=== PATIENT | male | born 1935 | race Caucasian/White ===

== ENCOUNTER 2019-10-09 09:23 | Observation (INO) ==
[2019-10-09 10:07] LABS: Hematocrit 37.8 % (42.0-52.0); Mean Cell Volume 93.8 fl (78-100); Mean Corpuscular Hemoglobin 32.3 pg (27-31); Mean Corpuscular Hgb Conc 34.4 g/dl (32-36); Mean Platelet Volume 10.6 fl (8-11.3); Neutrophil # 10.1 K/mm3 (1.3-6.0); Neutrophil % 82.5 % (42-75.0); Platelet Count 229 K/mm3 (150-450); Red Blood Count 4.03 M/mm3 (4.7-6.0); Red Cell Distribution Width 13.9 % (11.5-14.0); White Blood Count 12.2 K/mm3 (4.0-10.5)
[2019-10-09 10:18] LABS: Urine Bilirubin Negative (NEGATIVE); Urine Blood Negative /ul (NEGATIVE); Urine Ketone Negative (NEGATIVE); Urine Nitrite Negative (NEGATIVE); Urine Protein 15 mg/dL (NEGATIVE); Urine Urobilinogen Normal (NORMAL)
[2019-10-09 10:25] LABS: Urine Appearance Clear (CLEAR); Urine Color Dark Yellow
[2019-10-09 10:26] LABS: Urine Amorphous Sediment Few - 1+ (NONE-FEW); Urine Bacteria None Seen; Urine RBC None Seen /hpf (0-5); Urine WBC None Seen /hpf (0-5)
[2019-10-09 10:33] LABS: Albumin * 3.3 gm/dl (3.4-5.0); Anion Gap 13.3 mmol/L (6.8-13.8); BUN/Creatinine Ratio 18.8 (9.0-21.6); Bilirubin, Total 1.1 mg/dL (0.0-1.1); Ca. Corrected For Albumin 9.1 mg/dL (8.4-10.2); Calcium * 8.9 mg/dL (7.9-10.9); Carbon Dioxide 26.1 mmol/L (24-32.6); Potassium 3.4 mmol/L (3.4-4.6)
[2019-10-09 10:40] LABS: Troponin I 0.032 ng/mL (0.00-0.10)
--- NOTE | 2019-10-09 11:29 | ERNOTE ---
Trauma/Assault HPI - Narrative Date of Service: 10/09/19 - General Stated Complaint: fall Time Seen by Provider: 10/09/19 09:44 Source: patient Exam Limitations: no limitations - Immun/Allergies/Home Medications Immunizations: IMMUNIZATION HX Immunizations Up to Date Yes History of Influenza Vaccine No Hx Pneumococcal Vaccination No Allergies/Adverse Reactions: Allergies codeine Allergy (Unknown, Verified 06/10/19 17:26) Unknown Home Medications: HOME MEDICATIONS levothyroxine 150 mcg tablet See Rx Instructions .ROUTE .COMPLEX #90 tablet 04/03/19 [Last Taken Unknown] Bacillus coagulans 10 billion cell capsule,delayed release 10,000,000 cell PO DAILY cap 06/04/19 [Last Taken 06/08/19] Pancreat-Bet XRh-yjs-ftgt-pap 250 mg-162 mg-65 mg-125 mg capsule 1 cap PO BID cap 06/04/19 [Last Taken Unknown] aspirin 81 mg tablet,delayed release 81 mg PO DAILY 06/04/19 [Last Taken Unknown] bee pollen 550 mg capsule 1,100 mg PO DAILY cap 06/04/19 [Last Taken Unknown] bone meal-vitamin D2 1 tab PO DAILY tab 06/04/19 [Last Taken Unknown] bromelains (bulk) 1 ea MISCELLANEOUS DAILY 06/04/19 [Last Taken 06/08/19] citrulline 600 mg capsule 1.8 g PO TID 06/04/19 [Last Taken Unknown] coenzyme Q10 100 mg capsule 200 mg PO DAILY cap 06/04/19 [Last Taken Unknown] iodine 150 mcg tablet 600 mcg PO DAILY tab 06/04/19 [Last Taken Unknown] propylene glycol 0.6 % eye drops 1 drp OP DAILY PRN 06/04/19 [Last Taken Unknown] turmeric (bulk) 95 % powder 95 % MISCELLANEOUS DAILY g 06/04/19 [Last Taken 06/08/19] alprazolam 0.25 mg tablet 0.25 mg PO BID PRN #14 tab 06/12/19 [Last Taken Unkn own] - History of Present Illness Narrative: Patient presents to the ED via EMS> He has been having recurrent falls. Had a fall a week ago where he hurt his back and leg (right). Right leg pain and swelling since then and low back pain since then. Seems worse overall to the point that he cannot get around due to pain. No acute focal weakness. No head injury. Generalized weakness and gait instability. No acute abdominal pain. No CP, rare cough. EMS gave the patient Toradol en route. Location Occurred: Reports: home Pain Location: Reports: other - see narrative Method of Injury: Reports: fall Severity: severe Modifying Factors - (Improves): Reports: rest Modifying Factors - (Worsens): Reports: movement Loss of Consciousness: Reports: no loss of consciousness Associated Symptoms - Trauma: Reports: trouble walking. Denies: chest pain, shortness of breath, abdominal pain, vomiting Review of Systems - Review of Systems Constitutional: Absent: fever Respiratory: Absent: shortness of breath Cardiology: Absent: chest pain Gastrointestinal/Abdominal: Absent: abdominal pain Neurological: Present: See HPI All Other Systems: All systems neg except as marked Medical History (Last Reviewed 10/09/19 @ 12:59 by Baudilio Wolff MD) Osteoarthritis (Chronic) Onset Date: Unknown Hypothyroidism (Chronic) Onset Date: Unknown Hyperlipidemia (Chronic) Onset Date: Unknown GERD (gastroesophageal reflux disease) (Chronic) Onset Date: Unknown Hypertension (Chronic) Onset Date: ~03/11/16 Depression (Chronic) Onset Date: Unknown Arthritis (Chronic) Onset Date: ~03/11/16 Anxiety disorder (Chronic) Onset Date: Unknown Acid reflux disease (Chronic) Onset Date: ~11/07/15 Calculus of kidney Onset Date: Unknown Colonoscopy refused Onset Date: ~12/11/16 Fracture Onset Date: Unknown Knee pain, left Onset Date: ~03/11/16 Knee pain, right Onset Date: ~03/11/16 Surgical History: Surgical History (Last Reviewed 10/09/19 @ 12:59 by Baudilio Wolff MD) S/P ORIF (open reduction internal fixation) fracture Onset Date: ~08/24/08 right patella Family History: Family History (Last Reviewed 10/09/19 @ 12:59 by Baudilio Wolff MD) Sister Diabetes Heart disease Father TIA (transient ischemic attack) Heart disease Aunt Cancer Uncle Cancer Social History: (Last Reviewed 10/09/19 @ 12:59 by Baudilio Wolff MD) Social History: Marital status: Single current occupational status: retired Service: No Tobacco: Smoking Status: Never smoker Alcohol: alcohol intake: never Substance Use: substance use type: does not use Dietary Habits: caffeine: Yes Physical Exam - Physical Exam General Appearance: Present: alert, no apparent distress Head Exam: Present: normal inspection, no evidence of injury Eye Exam: Normal inspection: bilateral, PERRL: bilateral Ears, Nose, Throat: Present: normal ENT inspection Neck: Present: normal inspection. Absent: tender posterior midline Respiratory: Present: no respiratory distress, normal breath sounds, no accessory muscle use, lungs clear Cardiovascular/Chest: Present: regular rate, rhythm Gastrointestinal/Abdominal: Present: normal bowel sounds, nontender, nondist ended, soft Back Exam: Present: other - diffuse low back tenderness, does not localize specifically to one level, no localizing point vertebral tenderness. Extremity Exam: Present: other - Tenderness right knee, Swelling right leg c/w left. No compartment syndrome noted. Strong pulses. No other point extremity tenderness. Neurological Exam: Present: alert, no motor/sensory deficits, other - pain limits exam but no clear acute unilateral focal motor or sensory deficits Skin Exam: Present: normal color, warm/dry, other - no cellulitis noted Progress - Results and Orders Patient's Lab Results:: I have reviewed the patient's lab results. - Vital Signs Patient's Vital Signs:: I have reviewed the patient's vital signs. Vital Signs: Vital Signs 10/09/19 09:29 10/09/19 09:35 10/09/19 10:35 Temperature 36.0 C Pulse Rate 84 86 104 H Respiratory Rate 14 16 Blood Pressure 199/91 H 180/90 H O2 Sat by Pulse Oximetry 99 95 - EKG EKG #1 EKG: NSR EKG read: Interp. by me EKG Comments: NSR rate 78. Ventricular premature complexes. Non-specific ST/T wave changes, no STEMI - X-Ray X-Ray #1 X-Ray: chest Interpretation: Interp. by me X-ray Comments: I reviewed official radiology report X-Ray #2 X-Ray: lumbosacral Interpretation: Interp. by me X-ray Comments: I reviewed official radiology report X-Ray #3 X-Ray: tibula/fibula Interpretation: Interp. by me X-ray Comments: I reviewed official radiology report X-Ray #4 X-Ray: femur Interpretation: Interp. by me X-ray Comments: I reviewed official radiology report - Progress/Reassessment Chief Complaint: Fall Progress Note-Subjective: 10/09/19 13:[address] Dickson. He will see in the office. Patient has too much pain and can not safely ambulate with age/pain. Severe fall risk and no home services. D/W case management. D/W Dr Rosa will admit obs. Patient agreeable. Departure Clinical Impression: Recurrent falls, Gait instability, Back pain, Leg pain - Departure Disposition: Still a patient Condition: Fair Critical Care Time - Critical Care Critical Time Spent:: No
[2019-10-09] MEDS ORDERED: fentaNYL CITRATE/PF 50 MCG/ML AMPUL IV ONE (11:53)
--- NOTE | 2019-10-09 14:07 | HP ---
Chief Complaint - Chief Complaint Date of Service: 10/09/19 Time of Service: 13:44 Chief Complaint: Right leg swelling, unable to walk History of Present Illness: Patient presented to the ER after being unable to walk. He fell about a week ago by rolling out of bed, and declined hospitalization by EMS. Since then, he has lost the ability to walk. He's been immobile for a few days. He has some pain in his left leg, but his right leg is very swollen and is significantly painful from the knee to the calf. Most of the pain is in his calf. He had a lactate of 2.6, resolved to 1.1 while in the ED. Imaging suggested a possible hairline fracture of the tibia, but he is not significantly painful in this region. Labs show he has a very slight elevation in white blood cell count of 12.2, slight anemia at 13.0. Denies other concerns. Medical History (Last Reviewed 10/09/19 @ 12:59 by Baudilio Wolff MD) Osteoarthritis (Chronic) Onset Date: Unknown Hypothyroidism (Chronic) Onset Date: Unknown Hyperlipidemia (Chronic) Onset Date: Unknown GERD (gastroesophageal reflux disease) (Chronic) Onset Date: Unknown Hypertension (Chronic) Onset Date: ~03/11/16 Depression (Chronic) Onset Date: Unknown Arthritis (Chronic) Onset Date: ~03/11/16 Anxiety disorder (Chronic) Onset Date: Unknown Acid reflux disease (Chronic) Onset Date: ~11/07/15 Calculus of kidney Onset Date: Unknown Colonoscopy refused Onset Date: ~12/11/16 Fracture Onset Date: Unknown Knee pain, left Onset Date: ~03/11/16 Knee pain, right Onset Date: ~03/11/16 Surgical History: Surgical History (Last Reviewed 10/09/19 @ 12:59 by Baudilio Wolff MD) S/P ORIF (open reduction internal fixation) fracture Onset Date: ~08/24/08 right patella Family History: Family History (Last Reviewed 10/09/19 @ 12:59 by Baudilio Wolff MD) Sister Diabetes Heart disease Father TIA (transient ischemic attack) Heart disease Aunt Cancer Uncle Cancer Social History: (Last Reviewed 10/09/19 @ 12:59 by Baudilio Wolff MD) Social History: Marital status: Single current occupational status: retired Service: No Tobacco: Smoking Status: Never smoker Alcohol: alcohol intake: never Substance Use: substance use type: does not use Dietary Habits: caffeine: Yes Review Of Systems (GEN) - Review of Systems Generalized/Overall Review: Absent: Fever Respiratory: Absent: Cough, Shortness of Breath Cardiac: Present: Edema - right lower leg. Absent: Chest Pain Abdominal: Present: Abdominal Pain - mild yesterday, improved after BM, Constipation - mild yesterday Genitourinary: Present: No Symptoms Reported Musculoskeletal: Present: Other - right lower leg Neurological: Present: No Symptoms Reported Skin: Present: No Symptoms Reported Immunizations: IMMUNIZATION HX Immunizations Up to Date Yes History of Influenza Vaccine No Hx Pneumococcal Vaccination No Allergies/Adverse Reactions: Allergies Allergy/AdvReac Type Severity Reaction Status Date / Time codeine Allergy Unknown Unknown Verified 06/10/19 17:26 Home Medications: HOME MEDICATIONS levothyroxine 150 mcg tablet See Rx Instructions .ROUTE .COMPLEX #90 tablet 04/03/19 [Last Taken Unknown] Bacillus coagulans 10 billion cell capsule,delayed release 10,000,000 cell PO DAILY cap 06/04/19 [Last Taken 06/08/19] Pancreat-Bet HNe-jle-aoma-pap 250 mg-162 mg-65 mg-125 mg capsule 1 cap PO BID cap 06/04/19 [Last Taken Unknown] aspirin 81 mg tablet,delayed release 81 mg PO DAILY 06/04/19 [Last Taken Unknown] bee pollen 550 mg capsule 1,100 mg PO DAILY cap 06/04/19 [Last Taken Unknown] bone meal-vitamin D2 1 tab PO DAILY tab 06/04/19 [Last Taken Unknown] bromelains (bulk) 1 ea MISCELLANEOUS DAILY 06/04/19 [Last Taken 06/08/19] citrulline 600 mg capsule 1.8 g PO TID 06/04/19 [Last Taken Unknown] coenzyme Q10 100 mg capsule 200 mg PO DAILY cap 06/04/19 [Last Taken Unknown] iodine 150 mcg tablet 600 mcg PO DAILY tab 06/04/19 [Last Taken Unknown] propylene glycol 0.6 % eye drops 1 drp OP DAILY PRN 06/04/19 [Last Taken Unknown] turmeric (bulk) 95 % powder 95 % MISCELLANEOUS DAILY g 06/04/19 [Last Taken 06/08/19] alprazolam 0.25 mg tablet 0.25 mg PO BID PRN #14 tab 06/12/19 [Last Taken Unknown] Exam - Exam Vital Signs: Vital Signs - Last Taken Temp 36.0 C 10/09/19 09:29 Pulse 64 10/09/19 13:00 Resp 12 10/09/19 13:00 BP 146/70 10/09/19 13:00 Pulse Ox 97 10/09/19 13:00 Constitutional: Present: Alert, Oriented x3, Cooperative, No distress, Looks Younger than stated age Respiratory: Present: normal breath sounds, no respiratory distress Cardiovascular/Chest: Present: regular rate, rhythm Abdomen: Present: soft, nontender Extremity: Present: lower extremity edema - 3+, to the knee of right lower leg. tenderness to palpation of calf. no tenderness of proximal tibia with palpation Neurologic: Present: normal mood/affect Eye contact: Present: good eye contact Diagnostic Studies: Abnormal Lab Results 10/09/19 10/09/19 10/09/19 Range/Units 09:49 10:03 10:03 WBC 12.2 H (4.0-10.5) K/mm3 RBC 4.03 L (4.7-6.0) M/mm3 Hgb 13.0 L (13.5-18.0) gm/dL Hct 37.8 L (42.0-52.0) % MCH 32.3 H (27-31) pg Immature Gran % (Auto) 0.60 H (0.001-0.429) % Immature Gran # (Auto) 0.07 H (0.000-0.0310) K/mm3 Neutrophils % 82.5 H (42-75.0) % Lymphocytes % 10.1 L (20-51) % Neutrophils # 10.1 H (1.3-6.0) K/mm3 Lymphocytes # 1.23 L (1.5-3.5) k/mm3 Random Glucose 142 H (70-110) mg/dL Lactic Acid, Venous (0.4-2.0) mmol/L B-Natriuretic Peptide 2046 H (5-650) pg/mL Albumin 3.3 L (3.4-5.0) gm/dl Urine Protein 15 H (NEGATIVE) mg/dL Urine Glucose (UA) 100 H (NEGATIVE) mg/dL 10/09/19 Range/Units 10:03 WBC (4.0-10.5) K/mm3 RBC (4.7-6.0) M/mm3 Hgb (13.5-18.0) gm/dL Hct (42.0-52.0) % MCH (27-31) pg Immature Gran % (Auto) (0.001-0.429) % Immature Gran # (Auto) (0.000-0.0310) K/mm3 Neutrophils % (42-75.0) % Lymphocytes % (20-51) % Neutrophils # (1.3-6.0) K/mm3 Lymphocytes # (1.5-3.5) k/mm3 Random Glucose (70-110) mg/dL Lactic Acid, Venous 2.6 H* (0.4-2.0) mmol/L B-Natriuretic Peptide (5-650) pg/mL Albumin (3.4-5.0) gm/dl Urine Protein (NEGATIVE) mg/dL Urine Glucose (UA) (NEGATIVE) mg/dL Laboratory Results WBC 12.2 K/mm3 (4.0-10.5) H 10/09/19 10:03 RBC 4.03 M/mm3 (4.7-6.0) L 10/09/19 10:03 Hgb 13.0 gm/dL (13.5-18.0) L 10/09/19 10:03 Hct 37.8 % (42.0-52.0) L 10/09/19 10:03 MCV 93.8 fl (78-100) 10/09/19 10:03 MCH 32.3 pg (27-31) H 10/09/19 10:03 MCHC 34.4 g/dl (32-36) 10/09/19 10:03 RDW 13.9 % (11.5-14.0) 10/09/19 10:03 Plt Count 229 K/mm3 (150-450) 10/09/19 10:03 MPV 10.6 fl (8-11.3) 10/09/19 10:03 Immature Gran % (Auto) 0.60 % (0.001-0.429) H 10/09/19 10:03 Immature Gran # (Auto) 0.07 K/mm3 (0.000-0.0310) H 10/09/19 10:03 Neutrophils % 82.5 % (42-75.0) H 10/09/19 10:03 Lymphocytes % 10.1 % (20-51) L 10/09/19 10:03 Monocytes % 6.6 % (0.0-9) 10/09/19 10:03 Eosinophils % 0.0 % (0.0-3.0) 10/09/19 10:03 Basophils % 0.2 % (0.0-1.0) 10/09/19 10:03 Nucleated RBC % 0.0 k/mm3 (0-1) 10/09/19 10:03 Neutrophils # 10.1 K/mm3 (1.3-6.0) H 10/09/19 10:03 Lymphocytes # 1.23 k/mm3 (1.5-3.5) L 10/09/19 10:03 Monocytes # 0.8 k/mm3 (0.0-1.0) 10/09/19 10:03 Eosinophils # 0.0 k/mm3 (0.0-0.7) 10/09/19 10:03 Absolute Basophils 0.0 k/mm3 (0.0-0.1) 10/09/19 10:03 Sodium 134 mmol/L (132-142) 10/09/19 10:03 Plasma Sodium 135 mmol/L (130-142) 10/09/19 10:03 Potassium 3.4 mmol/L (3.4-4.6) 10/09/19 10:03 Chloride 98 mmol/L (97-106) 10/09/19 10:03 Carbon Dioxide 26.1 mmol/L (24-32.6) 10/09/19 10:03 Anion Gap 13.3 mmol/L (6.8-13.8) 10/09/19 10:03 BUN 18 mg/dL (6-23) 10/09/19 10:03 Creatinine 0.96 mg/dL (0.4-1.4) 10/09/19 10:03 Est GFR (Non-Af Amer) 79 mL/min (60-130) D 10/09/19 10:03 BUN/Creatinine Ratio 18.8 (9.0-21.6) 10/09/19 10:03 Random Glucose 142 mg/dL (70-110) H 10/09/19 10:03 Lactic Acid, Venous 2.6 mmol/L (0.4-2.0) H* 10/09/19 10:03 Calcium 8.9 mg/dL (7.9-10.9) 10/09/19 10:03 Calcium Adj for Albumin 9.1 mg/dL (8.4-10.2) 10/09/19 10:03 Total Bilirubin 1.1 mg/dL (0.0-1.1) 10/09/19 10:03 AST 47 U/L (0-48) 10/09/19 10:03 ALT 24 U/L (19-67) 10/09/19 10:03 Alkaline Phosphatase 167 U/L (50-170) 10/09/19 10:03 Troponin I 0.032 ng/mL (0.00-0.10) 10/09/19 10:03 B-Natriuretic Peptide 2046 pg/mL (5-650) H 10/09/19 10:03 Total Protein 7.0 gm/dL (6.2-8.2) 10/09/19 10:03 Albumin 3.3 gm/dl (3.4-5.0) L 10/09/19 10:03 Lipase 148 U/L (73-393) 10/09/19 10:03 Urine Color Dark yellow 10/09/19 09:49 Urine Appearance Clear (CLEAR) 10/09/19 09:49 Urine pH 7.0 pH (5.0-7.0) 10/09/19 09:49 Ur Specific [place] 1.010 SP.GR. (1.005-1.030) 10/09/19 09:49 Urine Protein 15 mg/dL (NEGATIVE) H 10/09/19 09:49 Urine Glucose (UA) 100 mg/dL (NEGATIVE) H 10/09/19 09:49 Urine Ketones Negative mg/dL (NEGATIVE) 10/09/19 09:49 Urine Blood Negative /ul (NEGATIVE) 10/09/19 09:49 Urine Nitrate Negative (NEGATIVE) 10/09/19 09:49 Urine Bilirubin Negative mg/dl (NEGATIVE) 10/09/19 09:49 Prot Sulfosalicylic Acd Negative mg/dL (0) 10/09/19 09:49 Urine Urobilinogen Normal EU/dl (NORMAL) 10/09/19 09:49 Ur Leukocyte Esterase Negative /ul (NEGATIVE) 10/09/19 09:49 Urine RBC None seen /hpf (0-5) 10/09/19 09:49 Urine WBC None seen /hpf (0-5) 10/09/19 09:49 Ur Epithelial Cells None seen /hpf (0-5) 10/09/19 09:49 Amorphous Sediment Few - 1+ (NONE-FEW) 10/09/19 09:49 Urine Bacteria None seen (NONE) 10/09/19 09:49 Urine Culture Comments No culture indicated 10/09/19 09:49 Assessment/Plan - Narrative Narrative: His problem list in his chart includes hypertension, hyperlipidemia, reflux, anxiety disorder, hypothyroidism. He reports the only medication he takes that is prescribed his levothyroxine. He has multiple supplements on his medication list. - Assessment/Plan (1) Right leg swelling Assessment: Suspicious for DVT, and ultrasound has been ordered. He had a recent fall, and has been immobile, so he has risk factors. Imaging done in the ER suggested possible hairline fracture of the lateral tibial plateau, acute or chronic. He is not acutely tender to palpation in this region so I do not believe he has an acute fracture. He was given fentanyl in the ED, which has greatly improved his pain. He is concerned about developing constipation with pain medications, but he does not feel that ibuprofen would be very helpful. Can try tramadol for pain relief. PT has been ordered for tomorrow, and appreciate their assistance with DC planning. Problem: Acute (2) Constipation Assessment: He reports using aloe vera with water at home for constipation. Can use MiraLAX prn while here. Problem: Chronic (3) Unable to ambulate Problem: Acute
[2019-10-09] MEDS ORDERED: POLYETHYLENE GLYCOL 3350 17 GM PACKET PO PRN (14:23)
[2019-10-09] MEDS: LEVOTHYROXINE SODIUM 150 MCG TABLET PO SCH (15:46)
--- NOTE | 2019-10-09 16:07 | PN ---
Progess Note - Interim Date: 10/09/19 Time: 16:05 Narrative: 10/09/19 16:[address] Calle at the [facility]. Recommended CT angio to determine if the popliteal aneurysm is thrombosed. There is a chance that the aneurysm could bleed and rupture. He may be having ischemic pain. If the aneurysm is thrombosed or bleeding, he recommends transfer. He will need to be seen by vascular surgeon in clinic if he does not transfer. He also has a risk of another popliteal artery aneurysm in the other leg, as well as an abdominal aortic aneurysm.
[2019-10-09] MEDS: traMADol HCL 50 MG TABLET PO PRN (17:57)
[2019-10-09] MEDS: LISINOPRIL 10 MG TABLET PO SCH (21:01)
[2019-10-10] MEDS: traMADol HCL 50 MG TABLET PO PRN ×2 (06:00→11:31)
[2019-10-10] MEDS ORDERED: LEVOTHYROXINE SODIUM 150 MCG TABLET PO SCH (09:00)
[2019-10-10] MEDS ORDERED: ASPIRIN 81 MG TABLET.DR PO SCH (09:00)
[2019-10-10] MEDS: LISINOPRIL 10 MG TABLET PO SCH (09:02)
[2019-10-10] MEDS: LEVOTHYROXINE SODIUM 150 MCG TABLET PO SCH (09:02)
--- NOTE | 2019-10-10 10:31 | PN ---
Subjective - Date and Time Seen Date: 10/10/19 Time: 08:30 Subjective Narrative: Patient reports no new concerns. No pain currently this morning. Objective - Review of Systems Generalized/Overall Review: Denies: Fever Respiratory: Denies: Cough, Shortness of Breath Cardiac: Reports: Edema, Other - 2+ DP pulse of right foot. Denies: Chest Pain Abdominal: Denies: Vomiting Genitourinary Symptoms: Reports: No Symptoms Reported Musculoskeletal Complaints: Reports: Back Pain, Other - right leg pain Neurological: Reports: No Symptoms Reported - Vitals Vitals: Last Vital Signs Temp 36.4 C 10/10/19 09:52 Pulse 74 10/10/19 09:52 Resp 17 10/10/19 09:52 BP 131/59 10/10/19 09:52 Pulse Ox 98 10/10/19 09:52 - Abnormal Lab Findings Abnormal Lab Findings: Abnormal Lab Results 10/09/19 10/09/19 10/09/19 Range/Units 09:49 10:03 10:03 WBC 12.2 H (4.0-10.5) K/mm3 RBC 4.03 L (4.7-6.0) M/mm3 Hgb 13.0 L (13.5-18.0) gm/dL Hct 37.8 L (42.0-52.0) % MCH 32.3 H (27-31) pg Immature Gran % (Auto) 0.60 H (0.001-0.429) % Immature Gran # (Auto) 0.07 H (0.000-0.0310) K/mm3 Neutrophils % 82.5 H (42-75.0) % Lymphocytes % 10.1 L (20-51) % Neutrophils # 10.1 H (1.3-6.0) K/mm3 Lymphocytes # 1.23 L (1.5-3.5) k/mm3 Random Glucose 142 H (70-110) mg/dL Lactic Acid, Venous (0.4-2.0) mmol/L B-Natriuretic Peptide 2046 H (5-650) pg/mL Albumin 3.3 L (3.4-5.0) gm/dl Urine Protein 15 H (NEGATIVE) mg/dL Urine Glucose (UA) 100 H (NEGATIVE) mg/dL 10/09/19 Range/Units 10:03 WBC (4.0-10.5) K/mm3 RBC (4.7-6.0) M/mm3 Hgb (13.5-18.0) gm/dL Hct (42.0-52.0) % MCH (27-31) pg Immature Gran % (Auto) (0.001-0.429) % Immature Gran # (Auto) (0.000-0.0310) K/mm3 Neutrophils % (42-75.0) % Lymphocytes % (20-51) % Neutrophils # (1.3-6.0) K/mm3 Lymphocytes # (1.5-3.5) k/mm3 Random Glucose (70-110) mg/dL Lactic Acid, Venous 2.6 H* (0.4-2.0) mmol/L B-Natriuretic Peptide (5-650) pg/mL Albumin (3.4-5.0) gm/dl Urine Protein (NEGATIVE) mg/dL Urine Glucose (UA) (NEGATIVE) mg/dL - Exam Constitutional: Present: Alert, Cooperative, No distress, Elderly Respiratory: Present: lungs clear, normal breath sounds, no respiratory distress Cardiovascular/Chest: Present: regular rate, rhythm Abdomen: Present: soft, nontender Extremity: Present: lower extremity edema - 2+ RLE to the knee, improved from yesterday Skin Exam: Present: normal color, other - 2 cm callus of right medial plantar surface Assessment/Plan - Problems/Diagnosis (1) Bilateral popliteal artery aneurysm Problem: Acute Narrative: CT angio of the abdomen and lower extremities showed bilateral popliteal artery aneurysms, 2.7 cm dilatation of right common iliac artery, and 1.9 cm dilatation of proximal right internal iliac artery. No DVT. Discussed the results with [facility] vascular surgery, and there is no thrombosis or active bleeding. Recommend follow up with vascular surgery outpatient. They do not feel the vascular findings are responsible for his swelling. Mr. Lopez reported yesterday that he is not sure he would undergo surgery if it was recommended, because he had a friend after vascular surgery. Continue 81 mg aspirin. Possible DC later today. (2) Right leg swelling Problem: Acute Narrative: Patient reports falling a week ago and having difficulty walking since then. His leg from his knee to his foot is painful. X-ray done in the ER showed acute versus chronic tibial plateau fracture. He is not tender to palpation over that area, but is tender if pushing superiorly on the bottom of his foot. He has no bruising in the region of the lateral tibial plateau. Discussion with the vascular surgeon at the [facility] regarding the runoff findings, he does not believe any vascular findings would account for Mr. Lopez's swelling. Swelling has improved since yesterday. Appreciate PT assistance in determining DC arran gements. (3) Unable to ambulate Problem: Acute Narrative: Developed in the last week, due to right lower leg pain. He fell a week ago, and also fell "a long time ago." He did not report multiple falls to me. PT has been consulted. He lives alone, but would like to return home after DC. Swelling has improved without intervention. If he is able to ambulate, can DC today. (4) Constipation Problem: Chronic
--- NOTE | 2019-10-10 13:07 | DS ---
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 He fell about a week ago by rolling out of bed, and decli rolando hospitalization by EMS. Since then, he has lost the ability to walk. He's been immobile for a few days. He has some pain in his left leg, but his right leg is very swollen and is significantly painful from the knee to the calf. Most of the pain is in his calf. He had a lactate of 2.6, resolved to 1.1 while in the ED. Imaging suggested a possible hairline fracture of the tibia, but he is not significantly painful in this region. US was done for suspicion of DVT. 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 Vascular surgery at the [facility] was consulted, who recommended further imaging. CT angiography runoff was done, and bilateral popliteal artery aneurysms were found, in addition to dilation of his common iliac arteries. Again discussed these results with vascular surgery, who recommended outpatient follow-up. Imaging did not reveal thrombosis or active bleeding. They do not believe that the imaging findings explain his lower extremity swelling. Discussed results with patient, who is not sure he would undergo surgery if that was recommended. The CT of his lower extremities shows his fracture is likely chronic and not acute. Edema still present the following morning, but had improved. He worked with PT, who recommended he go to a facility, but he declined. He signed an AMA for declining rehab facility placement. He would like to have [facility] home health. He will go home with tramadol, and will refer to vascular surgery. If he'd like to see orthopedics, recommend discussing this at hospital follow up, and order if needed. Mr. Lopez is homebound due to weakness, bilateral popliteal artery aneurysms, recent fall. The need for half-way is medication education and management. The need for physical therapy is strengthening, poor balance, mobility issues. The need for home health care skilled services is directly related to the time spent [id number] with him. Procedures Performed: none Results and Findings: Lab Pending Results 10/09/19 09:49: Urine Color Dark yellow, Urine Appearance Clear, Urine pH 7.0, Ur Specific [place] 1.010, Urine Protein 15 H, Urine Glucose (UA) 100 H, Urine Ketones Negative, Urine Blood Negative, Urine Nitrate Negative, Urine Bilirubin Negative, Prot Sulfosalicylic Acd Negative, Urine Urobilinogen Normal, Ur Leukocyte Esterase Negative, Urine RBC None seen, Urine WBC None seen, Ur Epithelial Cells None seen, Amorphous Sediment Few - 1+, Urine Bacteria None seen, Urine Culture Comments No culture indicated 10/09/19 10:03: WBC 12.2 H, RBC 4.03 L, Hgb 13.0 L, Hct 37.8 L, MCV 93.8, MCH 32.3 H, MCHC 34.4, RDW 13.9, Plt Count 229, MPV 10.6, Immature Gran % (Auto) 0.60 H, Immature Gran # (Auto) 0.07 H, Neutrophils % 82.5 H, Lymphocytes % 10.1 L, Monocytes % 6.6, Eosinophils % 0.0, Basophils % 0.2, Nucleated RBC % 0.0, Neutrophils # 10.1 H, Lymphocytes # 1.23 L, Monocytes # 0.8, Eosinophils # 0.0, Absolute Basophils 0.0 10/09/19 10:03: Sodium 134, Plasma Sodium 135, Potassium 3.4, Chloride 98, Carbon Dioxide 26.1, Anion Gap 13.3, BUN 18, Creatinine 0.96, Est GFR (Non-Af Amer) 79 D, BUN/Creatinine Ratio 18.8, Random Glucose 142 H, Calcium 8.9, Calcium Adj for Albumin 9.1, Total Bilirubin 1.1, AST 47, ALT 24, Alkaline Phosphatase 167, Troponin I 0.032, B-Natriuretic Peptide 2046 H, Total Protein 7.0, Albumin 3.3 L, Lipase 148 10/09/19 10:03: Lactic Acid, Venous 2.6 H* 10/09/19 13:25: Lactic Acid, Venous 1.1 10/09/19 17:40: Troponin I 0.024 10/09/19 23:44: Troponin I 0.047 Discharge Location: Home Disposition: Home self-alf Health Agency: [facility] Home Health Condition: Fair Discharge Activity: Activity as tolerated Discharge Diet: Resume usual diet Additional Patient Instructions (free text): Will be a TCM follow up appointment. Please schedule with vascular surgery within 2 weeks at the facility of patient's choice - [facility] or [facility] Please schedule with patient's PCP also within 2 weeks. Prescriptions (Any new or edited meds): Aspirin [Aspirin Enteric Coated] 81 mg PO DAILY #90 tablet. Transmission Status: Pending to [place], [place] Polyethylene Glycol 3350 [Miralax] 17 gm PO DAILY PRN #1 bottle PRN Reason: Constipation Transmission Status: Pending to [place], [place] traMADol HCL [Ultram] 50 mg PO Q4H PRN #40 tab PRN Reason: Pain Transmission Status: Received by [place], [place] Complete Home Medications List: Complete Home Medication List: Levothyroxine Sodium [Synthroid] 150 mcg PO DAILY 10/09/19 Aspirin [Aspirin Enteric Coated] 81 mg PO DAILY #90 tablet. 10/10/19 Polyethylene Glycol 3350 [Miralax] 17 gm PO DAILY PRN #1 bottle 10/10/19 traMADol HCL [Ultram] 50 mg PO Q4H PRN #40 tab 10/10/19
[2019-10-10 14:02] VITALS: BP 125/61
== END 2019-10-10 14:35 | disposition home health service (06) ==
LOC: MS 09:23 → ER 09:23 → MS 13:00
PROVIDERS: ADMIT Family Medicine; ATTEND Family Medicine
DX: K59.00 Constipation, unspecified; E03.9 Hypothyroidism, unspecified; M54.5 Low back pain; I80.251 Phlebitis and thrombophlebitis of right calf muscular vein; R60.0 Localized edema; M79.604 Pain in right leg; R26.2 Difficulty in walking, not elsewhere classified; R53.1 Weakness; I10 Essential (primary) hypertension; I72.4 Aneurysm of artery of lower extremity
CPT/HCPCS: 36415; 71010; 71045; 72110; 73552; 73590; 75635; 80053; 81001; 83519; 83605; 83690; 83880; 84484; 85025; 93005; 93971; 96374; 97110; 97116; 97161; 99285; G0378; Q9967

== ENCOUNTER 2020-01-25 10:58 | Observation (INO) ==
--- NOTE | 2020-01-25 11:31 | ERNOTE ---
Medical Problem HPI - General Chief Complaint: General Assessment Time Seen by Provider: 01/25/20 11:16 Source: patient Exam Limitations: no limitations - Immun/Allergies/Home Medications Immunizations: IMMUNIZATION HX Immunizations Up to Date Yes History of Influenza Vaccine More Information Required Hx Pneumococcal Vaccination More Information Required Allergies/Adverse Reactions: Allergies codeine Allergy (Unknown, Verified 01/25/20 14:41) Unknown Home Medications: HOME MEDICATIONS Levothyroxine Sodium [Synthroid] 150 mcg PO DAILY 10/09/19 [Last Taken Unknown] Aspirin [Aspirin Enteric Coated] 81 mg PO DAILY #90 tablet.dr 10/10/19 [Last Taken Unknown] Polyethylene Glycol 3350 [Miralax] 17 gm PO DAILY PRN #1 bottle 10/10/19 [Last Taken Unknown] calcitonin (salmon) 200 unit/actuation nasal spray 1 spray INTRANASAL (ALT) DAILY #3.7 ml 10/20/19 [Last Taken Unknown] acetaminophen 325 mg tablet 650 mg PO Q6H PRN #60 tab 12/16/19 [Last Taken Unknown] hydrocodone 5 mg-acetaminophen 325 mg tablet 1 tab PO Q6H PRN #30 tab 01/19/20 [Last Taken Unknown] tramadol 50 mg tablet 50 mg PO Q8H PRN #40 tab 01/19/20 [Last Taken Unknown] - History of Present History Narrative: Patient is coming to the ER for generalized weakness. He states that 3 months ago he fell and fractured a vertebrae in his back, he had home health for a short time but then was released from home health. He states that he has been declining ever since, because of the back pain he has not been able to move much, he pretty much lives in his chair and has neighbors bring him food, rarely ambulates to the bathroom. When asked about falls he states that he fell 2 weeks ago. Today he arrives by EMS for generalized weakness, denies any focal weakness, no other pain except for the back pain Timing: getting worse Review of Systems - Review of Systems Constitutional: Absent: recent illness ENT: Absent: nose congestion, sore throat Respiratory: Absent: shortness of breath Cardiology: Absent: chest pain Gastrointestinal/Abdominal: Present: constipation. Absent: nausea, abdominal pain Genitourinary: Present: no symptoms reported Musculoskeletal: Present: See HPI, back pain Skin: Absent: rash Neurological: Present: See HPI, weakness Medical History (Last Reviewed 01/25/20 @ 11:31 by Ana Sewell MD) Osteoarthritis (Chronic) Onset Date: Unknown Hypothyroidism (Chronic) Onset Date: Unknown Hyperlipidemia (Chronic) Onset Date: Unknown GERD (gastroesophageal reflux disease) (Chronic) Onset Date: Unknown Hypertension (Chronic) Onset Date: ~03/11/16 Depression (Chronic) Onset Date: Unknown Arthritis (Chronic) Onset Date: ~03/11/16 Anxiety disorder (Chronic) Onset Date: Unknown Acid reflux disease (Chronic) Onset Date: ~11/07/15 Calculus of kidney Onset Date: Unknown Colonoscopy refused Onset Date: ~12/11/16 Fracture Onset Date: Unknown Knee pain, left Onset Date: ~03/11/16 Knee pain, right Onset Date: ~03/11/16 Surgical History: Surgical History (Last Reviewed 01/25/20 @ 11:31 by Ana Sewell MD) S/P ORIF (open reduction internal fixation) fracture Onset Date: ~08/24/08 right patella Family History: Family History (Last Reviewed 01/25/20 @ 14:39 by Stephen Santana RN) Sister Diabetes Heart disease Father TIA (transient ischemic attack) Heart disease Aunt Cancer Uncle Cancer Social History: (Last Updated 01/25/20 @ 14:39 by Stephen Santana RN) Social History: Marital status: Single lives independently: Yes current occupational status: retired Service: No Tobacco: Smoking Status: Never smoker Alcohol: alcohol intake: never Substance Use: substance use type: does not use Dietary Habits: caffeine: Yes Physical Exam - Physical Exam General Appearance: Present: wd/wn, alert, no apparent distress Head Exam: Present: normal inspection, no evidence of injury Eye Exam: Normal inspection: bilateral, PERRL: bilateral Ears, Nose, Throat: Present: normal pharynx Respiratory: Present: no respiratory distress, normal breath sounds, no accessory muscle use, lungs clear Cardiovascular/Chest: Present: regular rate, rhythm, no murmur Gastrointestinal/Abdominal: Present: normal bowel sounds, nontender, nondistended, soft Back Exam: Present: normal inspection, no vertebral tenderness Extremity Exam: Present: no edema Neurological Exam: Present: alert, oriented, normal mood/affect, no motor/sensory deficits Skin Exam: Present: normal color, warm/dry Progress - Results and Orders Patient's Lab Results:: I have reviewed the patient's lab results. - Vital Signs Patient's Vital Signs:: I have reviewed the patient's vital signs. Vital Signs: Vital Signs 01/25/20 11:00 01/25/20 11:11 Temperature 36.7 C Pulse Rate 103 H 74 Respiratory Rate 16 14 Blood Pressure 181/94 H O2 Sat by Pulse Oximetry 98 100 - EKG EKG #1 EKG: NSR, nonspecific ST T wave changes, unchanged from 09/2019, other - first degree AV block EKG read: Interp. by me - Progress/Reassessment Chief Complaint: General Assessment Progress Note-Subjective: 01/25/20 13:17 Discussed test results with patient, he admits to not having taken his thyroid medicines for a while, cannot really say how long, cannot really say why. Patient is too weak to even sit up in bed without assistance, discussed admitting him to the hospital, patient agreed 01/25/20 13:20 discussed with dottie Dubon to admit for observation for weakness and hypothyroidism Departure Clinical Impression: Generalized weakness, Physical deconditioning Hypothyroidism Qualifiers: Hypothyroidism type: unspecified Qualified Code(s): E03.9 - Hypothyroidism, unspecified - Departure Disposition: Still a patient Condition: Stable
[2020-01-25 11:32] LABS: Hematocrit 37.7 % (42.0-52.0); Hemoglobin 13.1 gm/dL (13.5-18.0); Mean Cell Volume 96.4 fl (78-100); Mean Corpuscular Hemoglobin 33.5 pg (27-31); Mean Corpuscular Hgb Conc 34.7 g/dl (32-36); Mean Platelet Volume 9.1 fl (8-11.3); Neutrophil # 9.1 K/mm3 (1.3-6.0); Neutrophil % 79.8 % (42-75.0); Platelet Count 233 K/mm3 (150-450); Red Blood Count 3.91 M/mm3 (4.7-6.0); Red Cell Distribution Width 15.6 % (11.5-14.0); White Blood Count 11.4 K/mm3 (4.0-10.5)
[2020-01-25 11:55] LABS: Albumin * 3.8 gm/dl (3.4-5.0); Anion Gap 12.5 mmol/L (6.8-13.8); BUN/Creatinine Ratio 13.8 (9.0-21.6); Bilirubin, Total 1.2 mg/dL (0.0-1.1); Ca. Corrected For Albumin 9.2 mg/dL (8.4-10.2); Calcium * 9.4 mg/dL (7.9-10.9); Carbon Dioxide 28.6 mmol/L (24-32.6); Potassium 3.1 mmol/L (3.4-4.6); Total Protein 7.3 gm/dL (6.2-8.2)
[2020-01-25 12:29] LABS: Urine Appearance Clear (CLEAR); Urine Bilirubin Negative (NEGATIVE); Urine Blood 5 /ul (NEGATIVE); Urine Color Yellow; Urine Ketone Negative (NEGATIVE); Urine Nitrite Negative (NEGATIVE); Urine Protein 30 mg/dL (NEGATIVE); Urine Specific Gravity 1.015 SP.GR. (1.005-1.030); Urine Urobilinogen Normal (NORMAL); Urine pH 7.5 pH (5.0-7.0)
[2020-01-25 12:30] LABS: Urine Bacteria None Seen; Urine RBC 0-5 /hpf (0-5); Urine WBC 0-5 /hpf (0-5)
--- NOTE | 2020-01-25 23:01 | HP ---
Chief Complaint - Chief Complaint Date of Service: 01/25/20 Time of Service: 23:01 Chief Complaint: Weakness History of Present Illness: Sharath is an 84 yo male with history of falls, compression fracture, and hypothyroidism. He fell about 3 months ago causing a compression fracture. He was at home with home health until he was released. He has then been living at home on his own with the help of neighbors that bring him food. He reports he has not been ambulating much and last fell two weeks ago when he tried to walk. He has severe back and hip pain due to osteoarthritis and compression fracture. He was brought in by EMS due to extreme weakness and unable to get out of his chair. Medical History (Last Reviewed 01/25/20 @ 14:39 by Stephen Santana RN) Osteoarthritis (Chronic) Onset Date: Unknown Hypothyroidism (Chronic) Onset Date: Unknown Hyperlipidemia (Chronic) Onset Date: Unknown GERD (gastroesophageal reflux disease) (Chronic) Onset Date: Unknown Hypertension (Chronic) Onset Date: ~03/11/16 Depression (Chronic) Onset Date: Unknown Arthritis (Chronic) Onset Date: ~03/11/16 Anxiety disorder (Chronic) Onset Date: Unknown Acid reflux disease (Chronic) Onset Date: ~11/07/15 Calculus of kidney Onset Date: Unknown Colonoscopy refused Onset Date: ~12/11/16 Fracture Onset Date: Unknown Knee pain, left Onset Date: ~03/11/16 Knee pain, right Onset Date: ~03/11/16 Surgical History: Surgical History (Last Reviewed 01/25/20 @ 14:39 by Stephen Santana RN) S/P ORIF (open reduction internal fixation) fracture Onset Date: ~08/24/08 right patella Family History: Family History (Last Reviewed 01/25/20 @ 14:39 by Stephen Santana RN) Sister Diabetes Heart disease Father TIA (transient ischemic attack) Heart disease Aunt Cancer Uncle Cancer Social History: (Last Updated 01/25/20 @ 14:39 by Stephen Santana RN) Social History: Marital status: Single lives independently: Yes current occupational status: retired Service: No Tobacco: Smoking Status: Never smoker Alcohol: alcohol intake: never Substance Use: substance use type: does not use Dietary Habits: caffeine: Yes Review Of Systems (GEN) - Review of Systems Generalized/Overall Review: Present: Weakness. Absent: Chills, Fever EENTM: Present: No Symptoms Reported Respiratory: Absent: Cough, Shortness of Breath Cardiac: Absent: Chest Pain, Edema Abdominal: Absent: Nausea, Vomiting Genitourinary: Absent: Burning, Urgency Musculoskeletal: Present: Joint Pain, Back Pain Neurological: Absent: Headache, Anxiety Skin: Absent: Lesions, Lumps Endocrine: Absent: Excessive Sweating, Increased Thirst Immunizations: IMMUNIZATION HX Immunizations Up to Date Yes History of Influenza Vaccine More Information Required Hx Pneumococcal Vaccination More Information Required Allergies/Adverse Reactions: Allergies Allergy/AdvReac Type Severity Reaction Status Date / Time codeine Allergy Unknown Unknown Verified 01/25/20 14:41 Home Medications: HOME MEDICATIONS Levothyroxine Sodium [Synthroid] 150 mcg PO DAILY 10/09/19 [Last Taken Unknown] Aspirin [Aspirin Enteric Coated] 81 mg PO DAILY #90 tablet.dr 10/10/19 [Last Taken Unknown] Polyethylene Glycol 3350 [Miralax] 17 gm PO DAILY PRN #1 bottle 10/10/19 [Last Taken Unknown] calcitonin (salmon) 200 unit/actuation nasal spray 1 spray INTRANASAL (ALT) DAILY #3.7 ml 10/20/19 [Last Taken Unknown] acetaminophen 325 mg tablet 650 mg PO Q6H PRN #60 tab 12/16/19 [Last Taken Unknown] hydrocodone 5 mg-acetaminophen 325 mg tablet 1 tab PO Q6H PRN #30 tab 01/19/20 [Last Taken Unknown] tramadol 50 mg tablet 50 mg PO Q8H PRN #40 tab 01/19/20 [Last Taken Unknown] Exam - Exam Vital Signs: Vital Signs - Last Taken Temp 36.4 C 01/25/20 19:19 Pulse 77 01/25/20 19:19 Resp 18 01/25/20 19:19 BP 140/77 01/25/20 19:19 Pulse Ox 97 01/25/20 19:19 Constitutional: Present: Alert, Oriented x3, Cooperative ENT Exam: Present: hearing grossly normal Eye Exam: bilateral eye: normal inspection Respiratory: Present: lungs clear, normal breath sounds Cardiovascular/Chest: Present: regular rate, rhythm, no murmur Peripheral Pulses: radial (R): 2+, radial (L): 2+ Abdomen: Present: Normal bowel sounds, soft, nontender Neurologic: Present: motor weakness - Diffuse weakness 3/5 Appearance: Present: appropriate insight Eye contact: Present: cooperative, good eye contact, normal speech Thoughts: Present: normal thought pattern, no apparent hallucination Diagnostic Studies: Abnormal Lab Results 01/25/20 01/25/20 01/25/20 Range/Units 11:24 11:24 11:24 WBC 11.4 H (4.0-10.5) K/mm3 RBC 3.91 L (4.7-6.0) M/mm3 Hgb 13.1 L (13.5-18.0) gm/dL Hct 37.7 L (42.0-52.0) % MCH 33.5 H (27-31) pg RDW 15.6 H (11.5-14.0) % Immature Gran % (Auto) 0.60 H (0.001-0.429) % Immature Gran # (Auto) 0.07 H (0.000-0.0310) K/mm3 Neutrophils % 79.8 H (42-75.0) % Lymphocytes % 13.1 L (20-51) % Neutrophils # 9.1 H (1.3-6.0) K/mm3 Lymphocytes # 1.49 L (1.5-3.5) k/mm3 Potassium 3.1 L (3.4-4.6) mmol/L Chloride 96 L (97-106) mmol/L Est GFR (Non-Af Amer) 52 L D (60-130) mL/min Random Glucose 115 H (70-110) mg/dL Total Bilirubin 1.2 H (0.0-1.1) mg/dL TSH 60.070 H (0.358-3.74) uIU/mL Free T4 (0.76-1.46) ng/dL Urine Protein (NEGATIVE) mg/dL Urine Blood (NEGATIVE) /ul 01/25/20 01/25/20 Range/Units 11:24 11:50 WBC (4.0-10.5) K/mm3 RBC (4.7-6.0) M/mm3 Hgb (13.5-18.0) gm/dL Hct (42.0-52.0) % MCH (27-31) pg RDW (11.5-14.0) % Immature Gran % (Auto) (0.001-0.429) % Immature Gran # (Auto) (0.000-0.0310) K/mm3 Neutrophils % (42-75.0) % Lymphocytes % (20-51) % Neutrophils # (1.3-6.0) K/mm3 Lymphocytes # (1.5-3.5) k/mm3 Potassium (3.4-4.6) mmol/L Chloride (97-106) mmol/L Est GFR (Non-Af Amer) (60-130) mL/min Random Glucose (70-110) mg/dL Total Bilirubin (0.0-1.1) mg/dL TSH (0.358-3.74) uIU/mL Free T4 0.25 L (0.76-1.46) ng/dL Urine Protein 30 H (NEGATIVE) mg/dL Urine Blood 5 H (NEGATIVE) /ul Laboratory Results WBC 11.4 K/mm3 (4.0-10.5) H 01/25/20 11:24 RBC 3.91 M/mm3 (4.7-6.0) L 01/25/20 11:24 Hgb 13.1 gm/dL (13.5-18.0) L 01/25/20 11:24 Hct 37.7 % (42.0-52.0) L 01/25/20 11:24 MCV 96.4 fl (78-100) 01/25/20 11:24 MCH 33.5 pg (27-31) H 01/25/20 11:24 MCHC 34.7 g/dl (32-36) 01/25/20 11:24 RDW 15.6 % (11.5-14.0) H 01/25/20 11:24 Plt Count 233 K/mm3 (150-450) 01/25/20 11:24 MPV 9.1 fl (8-11.3) 01/25/20 11:24 Immature Gran % (Auto) 0.60 % (0.001-0.429) H 01/25/20 11:24 Immature Gran # (Auto) 0.07 K/mm3 (0.000-0.0310) H 01/25/20 11:24 Neutrophils % 79.8 % (42-75.0) H 01/25/20 11:24 Lymphocytes % 13.1 % (20-51) L 01/25/20 11:24 Monocytes % 6.3 % (0.0-9) 01/25/20 11:24 Eosinophils % 0.0 % (0.0-3.0) 01/25/20 11:24 Basophils % 0.2 % (0.0-1.0) 01/25/20 11:24 Nucleated RBC % 0.0 k/mm3 (0-1) 01/25/20 11:24 Neutrophils # 9.1 K/mm3 (1.3-6.0) H 01/25/20 11:24 Lymphocytes # 1.49 k/mm3 (1.5-3.5) L 01/25/20 11:24 Monocytes # 0.7 k/mm3 (0.0-1.0) 01/25/20 11:24 Eosinophils # 0.0 k/mm3 (0.0-0.7) 01/25/20 11:24 Absolute Basophils 0.0 k/mm3 (0.0-0.1) 01/25/20 11:24 Sodium 134 mmol/L (132-142) 01/25/20 11:24 Plasma Sodium 134 mmol/L (130-142) 01/25/20 11:24 Potassium 3.1 mmol/L (3.4-4.6) L 01/25/20 11:24 Chloride 96 mmol/L (97-106) L 01/25/20 11:24 Carbon Dioxide 28.6 mmol/L (24-32.6) 01/25/20 11:24 Anion Gap 12.5 mmol/L (6.8-13.8) 01/25/20 11:24 BUN 19 mg/dL (6-23) 01/25/20 11:24 Creatinine 1.38 mg/dL (0.4-1.4) D 01/25/20 11:24 Est GFR (Non-Af Amer) 52 mL/min (60-130) L D 01/25/20 11:24 BUN/Creatinine Ratio 13.8 (9.0-21.6) 01/25/20 11:24 Random Glucose 115 mg/dL (70-110) H 01/25/20 11:24 Calcium 9.4 mg/dL (7.9-10.9) 01/25/20 11:24 Calcium Adj for Albumin 9.2 mg/dL (8.4-10.2) 01/25/20 11:24 Total Bilirubin 1.2 mg/dL (0.0-1.1) H 01/25/20 11:24 AST 45 U/L (0-48) 01/25/20 11:24 ALT 56 U/L (19-67) 01/25/20 11:24 Alkaline Phosphatase 109 U/L (50-170) 01/25/20 11:24 Total Protein 7.3 gm/dL (6.2-8.2) 01/25/20 11:24 Albumin 3.8 gm/dl (3.4-5.0) 01/25/20 11:24 TSH 60.070 uIU/mL (0.358-3.74) H 01/25/20 11:24 Free T4 0.25 ng/dL (0.76-1.46) L 01/25/20 11:24 Urine Color Yellow 01/25/20 11:50 Urine Appearance Clear (CLEAR) 01/25/20 11:50 Urine pH 7.5 pH (5.0-7.0) 01/25/20 11:50 Ur Specific [place] 1.015 SP.GR. (1.005-1.030) 01/25/20 11:50 Urine Protein 30 mg/dL (NEGATIVE) H 01/25/20 11:50 Urine Glucose (UA) Negative mg/dL (NEGATIVE) 01/25/20 11:50 Urine Ketones Negative mg/dL (NEGATIVE) 01/25/20 11:50 Urine Blood 5 /ul (NEGATIVE) H 01/25/20 11:50 Urine Nitrate Negative (NEGATIVE) 01/25/20 11:50 Urine Bilirubin Negative mg/dl (NEGATIVE) 01/25/20 11:50 Prot Sulfosalicylic Acd 1+ mg/dL (0) 01/25/20 11:50 Urine Urobilinogen Normal EU/dl (NORMAL) 01/25/20 11:50 Ur Leukocyte Esterase Negative /ul (NEGATIVE) 01/25/20 11:50 Urine RBC 0-5 /hpf (0-5) 01/25/20 11:50 Urine WBC 0-5 /hpf (0-5) 01/25/20 11:50 Ur Epithelial Cells 0-5 /hpf (0-5) 01/25/20 11:50 Urine Bacteria None seen (NONE) 01/25/20 11:50 Urine Culture Comments No culture indicated 01/25/20 11:50 Assessment/Plan - Narrative Narrative: Sharath is significant deconditioned and weak. He is unable to sit up in bed. This is a combination of deconditioning, pain secondary to osteoarthritis and compression fracture, and hypothyroidism. Will restart levothyroxine and consult PT. He will likely need placement for strengthening. - Assessment/Plan (1) Generalized weakness Problem: Acute (2) Physical deconditioning Problem: Acute (3) Recurrent falls Problem: Acute (4) Gait instability Problem: Acute (5) Hypothyroidism Problem: Chronic Qualifiers: Hypothyroidism type: unspecified Qualified Code(s): E03.9 - Hypothyroidism, unspecified (6) Osteoarthritis Problem: Chronic
[2020-01-25] MEDS ORDERED: KETOROLAC TROMETHAMINE 30 MG/ML VIAL IV ONE (23:09)
[2020-01-26 06:46] LABS: Albumin * 3.6 gm/dl (3.4-5.0); Anion Gap 7.8 mmol/L (6.8-13.8); BUN/Creatinine Ratio 15.4 (9.0-21.6); Bilirubin, Total 1.2 mg/dL (0.0-1.1); Carbon Dioxide 33.3 mmol/L (24-32.6); Potassium 3.1 mmol/L (3.4-4.6)
[2020-01-26] MEDS ORDERED: KETOROLAC TROMETHAMINE 30 MG/ML VIAL IV ONE (11:00)
[2020-01-26] MEDS: LEVOTHYROXINE SODIUM 150 MCG TABLET PO SCH (11:32)
[2020-01-26] MEDS: MELOXICAM 15 MG TABLET PO SCH (11:32)
[2020-01-26] MEDS: HYDROcodone/ACETAMINOPHEN 1 EACH TABLET PO PRN (17:43)
[2020-01-26] MEDS ORDERED: LEVOTHYROXINE SODIUM 150 MCG TABLET PO SCH (23:01)
--- NOTE | 2020-01-26 23:18 | PN ---
Subjective - Date and Time Seen Date: 01/26/20 Time: 09:00 Subjective Narrative: He reports the toradol helped with the pain last night. PT evaluated him this morning and he cannot even sit up in bed. No fever, chills, nausea, or vomiting. He screams out in pain from his back at times. Objective - Vitals Vitals: Last Vital Signs Temp 37.1 C 01/26/20 18:59 Pulse 65 01/26/20 18:59 Resp 16 01/26/20 18:59 BP 142/71 01/26/20 18:59 Pulse Ox 95 01/26/20 18:59 - Abnormal Lab Findings Abnormal Lab Findings: Abnormal Lab Results 01/26/20 Range/Units 06:18 Potassium 3.1 L (3.4-4.6) mmol/L Carbon Dioxide 33.3 H (24-32.6) mmol/L Creatinine 1.43 H (0.4-1.4) mg/dL Est GFR (Non-Af Amer) 50 L (60-130) mL/min Total Bilirubin 1.2 H (0.0-1.1) mg/dL - Exam Constitutional: Present: Alert, Oriented x3, Cooperative Respiratory: Present: lungs clear, normal breath sounds, no respiratory distress Cardiovascular/Chest: Present: regular rate, rhythm, no edema, no murmur Abdomen: Present: Normal bowel sounds, soft, nontender, nondistended Neurologic: Present: motor weakness - unable to rise out of bed Assessment/Plan Plan Narrative: Having significant back pain with movement. Will evaluate with xray. Known compression fracture in spine. Continue PT. Continue thyroid replacement. He will need placement for nursing cares and strengthening. - Problems/Diagnosis (1) Generalized weakness Problem: Acute (2) Physical deconditioning Problem: Acute (3) Recurrent falls Problem: Acute (4) Gait instability Problem: Acute (5) Hypothyroidism Problem: Chronic Qualifiers: Hypothyroidism type: unspecified Qualified Code(s): E03.9 - Hypothyroidism, unspecified (6) Osteoarthritis Problem: Chronic
[2020-01-27] MEDS: LEVOTHYROXINE SODIUM 150 MCG TABLET PO SCH (06:33)
[2020-01-27] MEDS: HYDROcodone/ACETAMINOPHEN 1 EACH TABLET PO PRN ×2 (06:33→12:32)
[2020-01-27] MEDS: MELOXICAM 15 MG TABLET PO SCH (08:38)
[2020-01-27] MEDS ORDERED: NORMAL SALINE 1,000 ML IV ONE (13:19)
[2020-01-27] MEDS: oxyCODONE HCL/ACETAMINOPHEN 1 TAB TABLET PO PRN ×2 (16:40→23:43)
[2020-01-28] MEDS: LEVOTHYROXINE SODIUM 150 MCG TABLET PO SCH (06:34)
[2020-01-28] MEDS: oxyCODONE HCL/ACETAMINOPHEN 1 TAB TABLET PO PRN ×3 (06:46→16:59)
[2020-01-28] MEDS: MELOXICAM 15 MG TABLET PO SCH (08:53)
[2020-01-28] MEDS: DULoxetine HCL 30 MG CAPSULE.SA PO SCH (11:10)
[2020-01-28] MEDS ORDERED: NORMAL SALINE 1,000 ML IV PRN (16:41)
--- NOTE | 2020-01-28 23:48 | PN ---
Subjective - Date and Time Seen Date: 01/27/20 Time: 16:00 Subjective Narrative: Sharath reports pain is uncontrolled. Nursing reports he was unable to work with PT much due to weakness. No fever, chills, nausea, or vomiting. Objective - Vitals Vitals: Last Vital Signs Selected Entries 01/27/20 14:45 Temperature 36.4 C Pulse Rate 68 Respiratory Rate 18 Blood Pressure 158/86 H O2 Sat by Pulse Oximetry 99 Oxygen Delivery Method Room Air - Exam Constitutional: Present: Alert, Oriented x3, Cooperative ENT Exam: Present: hearing grossly normal Respiratory: Present: lungs clear, normal breath sounds Cardiovascular/Chest: Present: regular rate, rhythm, no murmur Abdomen: Present: Normal bowel sounds, soft, nontender Skin Exam: Present: normal color, warm/dry, no cyanosis Neurologic: Present: other - unable to sit up in bed due to weakness Assessment/Plan Plan Narrative: Continue to look for detention therapy. Discussed with him that he will need to work with therapy as much as possible. Will change hydrocodone to percocet for better pain control. - Problems/Diagnosis (1) Generalized weakness Problem: Acute (2) Physical deconditioning Problem: Acute (3) Recurrent falls Problem: Acute (4) Gait instability Problem: Acute (5) Hypothyroidism Problem: Chronic Qualifiers: Hypothyroidism type: unspecified Qualified Code(s): E03.9 - Hypothyroidism, unspecified (6) Osteoarthritis Problem: Chronic
--- NOTE | 2020-01-28 23:52 | PN ---
Subjective - Date and Time Seen Date: 01/28/20 Time: 16:14 Subjective Narrative: He reports decrease in appetite and just feels worn out. He did work with therapy better today. No fever, chills, nausea, or vomiting. Objective - Vitals Vitals: Last Vital Signs Temp 36.1 C 01/28/20 18:11 Pulse 70 01/28/20 18:11 Resp 16 01/28/20 18:11 BP 176/82 H 01/28/20 18:56 Pulse Ox 98 01/28/20 18:11 - Exam Constitutional: Present: Alert, Oriented x3, Cooperative ENT Exam: Present: hearing grossly normal Respiratory: Present: lungs clear, normal breath sounds, no respiratory distress Cardiovascular/Chest: Present: regular rate, rhythm, no murmur Abdomen: Present: Normal bowel sounds, soft, nontender Skin Exam: Present: normal color, warm/dry, no cyanosis Neurologic: Present: motor weakness - unable to sit up in bed on his own Assessment/Plan Plan Narrative: He has been accepted at [facility] for Sunday. Continue to work with therapy. Percocet is working better for pain. He has been started on thyroid replacement but this will take 6 weeks to correct and should help with his energy and strength. He appears depressed and was started on Cymbalta today to help with moods and pain. - Problems/Diagnosis (1) Generalized weakness Problem: Acute (2) Physical deconditioning Problem: Acute (3) Recurrent falls Problem: Acute (4) Gait instability Problem: Acute (5) Hypothyroidism Problem: Chronic Qualifiers: Hypothyroidism type: unspecified Qualified Code(s): E03.9 - Hypothyroidism, unspecified (6) Osteoarthritis Problem: Chronic
[2020-01-29] MEDS: LEVOTHYROXINE SODIUM 150 MCG TABLET PO SCH (06:48)
[2020-01-29] MEDS: oxyCODONE HCL/ACETAMINOPHEN 1 TAB TABLET PO PRN ×3 (06:48→21:09)
[2020-01-29] MEDS: MELOXICAM 15 MG TABLET PO SCH (08:40)
[2020-01-29] MEDS: DULoxetine HCL 30 MG CAPSULE.SA PO SCH (08:40)
[2020-01-29] MEDS ORDERED: ONDANSETRON HCL/PF 2 MG/ML VIAL IV PRN (16:59)
--- NOTE | 2020-01-29 17:06 | PN ---
Subjective - Date and Time Seen Date: 01/29/20 Time: 16:59 Subjective Narrative: Sharath reports pain and nausea at this time. When I walked into the room he appeared calm and comfortable. After seeing me he started moaning in pain and says he hasn't had pain medications all day. After speaking with nursing he has been asked numerous times today and has not requested pain medication and has been pretty comfortable throughout the day. He has worked with therapy and has been sitting up in a chair more today than yesterday. He is currently in the chair. No fever, chills, or vomiting. Objective - Vitals Vitals: Last Vital Signs Temp 36.6 C 01/29/20 14:56 Pulse 55 L 01/29/20 14:56 Resp 15 01/29/20 14:56 BP 148/76 01/29/20 14:56 Pulse Ox 97 01/29/20 14:56 - Exam Constitutional: Present: Alert, Oriented x3 Respiratory: Present: lungs clear, normal breath sounds, no respiratory distress Cardiovascular/Chest: Present: regular rate, rhythm, no murmur Abdomen: Present: Normal bowel sounds, soft, nontender Skin Exam: Present: normal color, warm/dry, no cyanosis Assessment/Plan Plan Narrative: He does appear to be improving in strength and was able to sit in a chair more today than the past two days. Percocet appears to control his pain. Plan to discharge to [facility] tomorrow for skilled. Will order zofran for nausea. Continue to work with therapy and continue thyroid replacement. - Problems/Diagnosis (1) Generalized weakness Problem: Acute (2) Physical deconditioning Problem: Acute (3) Recurrent falls Problem: Acute (4) Gait instability Problem: Acute (5) Hypothyroidism Problem: Chronic Qualifiers: Hypothyroidism type: unspecified Qualified Code(s): E03.9 - Hypothyroidism, unspecified (6) Osteoarthritis Problem: Chronic
[2020-01-30] MEDS: LEVOTHYROXINE SODIUM 150 MCG TABLET PO SCH (06:29)
[2020-01-30] MEDS: oxyCODONE HCL/ACETAMINOPHEN 1 TAB TABLET PO PRN (06:29)
[2020-01-30] MEDS: MELOXICAM 15 MG TABLET PO SCH (08:20)
[2020-01-30] MEDS: DULoxetine HCL 30 MG CAPSULE.SA PO SCH (08:20)
--- NOTE | 2020-01-30 09:09 | DS ---
(1) Generalized weakness Problem: Acute (2) Physical deconditioning Problem: Acute (3) Recurrent falls Problem: Acute (4) Gait instability Problem: Acute (5) Hypothyroidism Problem: Chronic Qualifiers: Hypothyroidism type: unspecified Qualified Code(s): E03.9 - Hypothyroidism, unspecified (6) Osteoarthritis Problem: Chronic Qualifiers: Osteoarthritis location: multiple joints Osteoarthritis type: primary Qualified Code(s): M89.49 - Other hypertrophic osteoarthropathy, multiple sites Date of Discharge:: 01/30/20 Hospital Course: Sharath was admitted for weakness, physical deconditioning, lumbar compression fracture, and hypothyroidism. He had a prior history of hypothyroidism, but had not been taking his medication. He had also not been active at home and progressively getting weaker due to back and hip pain. Xrays were evaluated and showed continue compression fracture of L2 and osteoarthritis. PT was consulted and worked with the patient. Initially he was unable to even sit up in bed but by discharge he was able to sit up in a chair. He has made improvement with therapy. He was restarted on his thyroid replacement and given pain control with hydrocodone and then changed to percocet. He will be discharged to [facility] with PT and OT. He will continue on percocet for pain control and stool softeners. Procedures Performed: none Results and Findings: Lab Pending Results 01/25/20 11:24: WBC 11.4 H, RBC 3.91 L, Hgb 13.1 L, Hct 37.7 L, MCV 96.4, MCH 33.5 H, MCHC 34.7, RDW 15.6 H, Plt Count 233, MPV 9.1, Immature Gran % (Auto) 0.60 H, Immature Gran # (Auto) 0.07 H, Neutrophils % 79.8 H, Lymphocytes % 13.1 L, Monocytes % 6.3, Eosinophils % 0.0, Basophils % 0.2, Nucleated RBC % 0.0, Neutrophils # 9.1 H, Lymphocytes # 1.49 L, Monocytes # 0.7, Eosinophils # 0.0, Absolute Basophils 0.0 01/25/20 11:24: Sodium 134, Plasma Sodium 134, Potassium 3.1 L, Chloride 96 L, Carbon Dioxide 28.6, Anion Gap 12.5, BUN 19, Creatinine 1.38 D, Est GFR (Non-Af Amer) 52 L D, BUN/Creatinine Ratio 13.8, Random Glucose 115 H, Calcium 9.4, Calcium Adj for Albumin 9.2, Total Bilirubin 1.2 H, AST 45, ALT 56, Alkaline Phosphatase 109, Total Protein 7.3, Albumin 3.8 01/25/20 11:24: TSH 60.070 H 01/25/20 11:24: Free T3 <0.5 L 01/25/20 11:24: Free T4 0.25 L 01/25/20 11:50: Urine Color Yellow, Urine Appearance Clear, Urine pH 7.5, Ur Specific [place] 1.015, Urine Protein 30 H, Urine Glucose (UA) Negative, Urine Ketones Negative, Urine Blood 5 H, Urine Nitrate Negative, Urine Bilirubin Negative, Prot Sulfosalicylic Acd 1+, Urine Urobilinogen Normal, Ur Leukocyte Esterase Negative, Urine RBC 0-5, Urine WBC 0-5, Ur Epithelial Cells 0-5, Urine Bacteria None seen, Urine Culture Comments No culture indicated 01/26/20 06:18: Sodium 135, Plasma Sodium 135, Potassium 3.1 L, Chloride 97, Carbon Dioxide 33.3 H, Anion Gap 7.8, BUN 22, Creatinine 1.43 H, Est GFR (Non-Af Amer) 50 L, BUN/Creatinine Ratio 15.4, Random Glucose 92, Calcium 9.0, Calcium Adj for Albumin 9.0, Total Bilirubin 1.2 H, AST 43, ALT 51, Alkaline Phosphatase 101, Total Protein 7.0, Albumin 3.6 01/28/20 11:05: SARS-CoV-2 (PCR) Not detected Discharge Location: [facility] Disposition: SNF Condition: Stable Level of Care: SNF Discharge Activity: Activity as tolerated Discharge Diet: General/regular food Long-Term Therapy: Physical Therapy, Occupation Therapy Referrals: DOC[facility]OUTSIDE [Non Staff Physicians] - [facility] Problem Oriented Discharge Instructions to Patient/Family: Hypothyroidism Additional Patient Instructions (free text): SNF at [facility] for PT and OT to evaluate and treat. Prescriptions (Any new or edited meds): DULoxetine HCL [Cymbalta] 30 mg PO DAILY #30 capsule.sa Transmission Status: Pending to [facility] Sennosides/Docusate Sodium [Dok Plus Tablet] 1 ea PO BID PRN #60 tab PRN Reason: constipation Transmission Status: Pending to [facility] Polyethylene Glycol 3350 [Miralax] 17 gm PO DAILY #1 bottle Transmission Status: Pending to [place], [place] Meloxicam [Mobic] 15 mg PO DAILY #30 tab Transmission Status: Pending to [facility] oxyCODONE HCL/ACETAMINOPHEN [Percocet 5 MG/325 MG] 1 tab PO Q3H PRN #60 tab PRN Reason: Moderate Pain (Pain Scale 4-6) Transmission Status: Sent to [facility] Levothyroxine Sodium [Synthroid] 150 mcg PO DAILY #30 Complete Home Medications List: Complete Home Medication List: Aspirin [Aspirin Enteric Coated] 81 mg PO DAILY #90 tablet. 10/10/19 calcitonin (salmon) 200 unit/actuation nasal spray 1 spray INTRANASAL (ALT) DAILY #3.7 ml 10/20/19 acetaminophen 325 mg tablet 650 mg PO Q6H PRN #60 tab 12/16/19 DULoxetine HCL [Cymbalta] 30 mg PO DAILY #30 capsule.sa 01/30/20 Levothyroxine Sodium [Synthroid] 150 mcg PO DAILY #30 01/30/20 Meloxicam [Mobic] 15 mg PO DAILY #30 tab 01/30/20 Polyethylene Glycol 3350 [Miralax] 17 gm PO DAILY #1 bottle 01/30/20 Sennosides/Docusate Sodium [Dok Plus Tablet] 1 ea PO BID PRN #60 tab 01/30/20 oxyCODONE HCL/ACETAMINOPHEN [Percocet 5 MG/325 MG] 1 tab PO Q3H PRN #60 tab 01/30/20 Forms: Patient Portal Registration
[2020-01-30 10:10] VITALS: BP 110/67
== END 2020-01-30 11:08 ==
LOC: ER 10:58 → MS 10:58
PROVIDERS: ADMIT Family Medicine; ATTEND Family Medicine
DX: R53.1 Weakness; Z91.81 History of falling; Z91.128 Patient's intentional underdosing of medication regimen for other reason; S32.029A Unspecified fracture of second lumbar vertebra, initial encounter for closed fracture; I10 Essential (primary) hypertension; Z11.59 Encounter for screening for other viral diseases; M16.0 Bilateral primary osteoarthritis of hip; E78.5 Hyperlipidemia, unspecified; E03.9 Hypothyroidism, unspecified; R26.81 Unsteadiness on feet
CPT/HCPCS: 36415; 72110; 72170; 80053; 81001; 84439; 84443; 84481; 85025; 93005; 96361; 96374; 96376; 97110; 97116; 97162; 97530; 99283; 99284; C9803; J2405; U0001

== ENCOUNTER 2020-03-11 18:04 | Observation (INO) ==
[2020-03-11 18:26] LABS: Hematocrit 32.5 % (42.0-52.0); Hemoglobin 11.2 gm/dL (13.5-18.0); Mean Cell Volume 96.4 fl (78-100); Mean Corpuscular Hemoglobin 33.2 pg (27-31); Mean Corpuscular Hgb Conc 34.5 g/dl (32-36); Mean Platelet Volume 10.5 fl (8-11.3); Neutrophil # 4.4 K/mm3 (1.3-6.0); Neutrophil % 67.4 % (42-75.0); Platelet Count 214 K/mm3 (150-450); Red Blood Count 3.37 M/mm3 (4.7-6.0); Red Cell Distribution Width 16.2 % (11.5-14.0); White Blood Count 6.6 K/mm3 (4.0-10.5)
[2020-03-11 18:36] LABS: Prothrombin Time (Patient) 9.5 Seconds (9.1-10.7)
[2020-03-11 18:37] LABS: INR 0.96 INR (0.92-1.08)
[2020-03-11 18:38] LABS: Partial Thrombolplastin Time 24.2 Seconds (24-32)
[2020-03-11 18:41] LABS: Albumin * 3.4 gm/dl (3.4-5.0); Anion Gap 11.6 mmol/L (6.8-13.8); BUN/Creatinine Ratio 15.5 (9.0-21.6); Bilirubin, Total 7.1 mg/dL (0.0-1.1); Ca. Corrected For Albumin 9.9 mg/dL (8.4-10.2); Calcium * 9.7 mg/dL (7.9-10.9); Carbon Dioxide 28.2 mmol/L (24-32.6); Potassium 3.8 mmol/L (3.4-4.6); Total Protein 6.9 gm/dL (6.2-8.2)
--- NOTE | 2020-03-11 19:55 | ERNOTE ---
Medical Problem HPI - Narrative Date of Service: 03/11/20 - General Chief Complaint: General Assessment Time Seen by Provider: 03/11/20 18:06 Source: patient Exam Limitations: no limitations - Immun/Allergies/Home Medications Immunizations: IMMUNIZATION HX Immunizations Up to Date Yes History of Influenza Vaccine Yes Hx Pneumococcal Vaccination No Allergies/Adverse Reactions: Allergies codeine Allergy (Unknown, Verified 03/11/20 18:08) Unknown Home Medications: HOME MEDICATIONS Aspirin [Aspirin Enteric Coated] 81 mg PO DAILY #90 tablet. 10/10/19 [Last Taken 01/31/20] calcitonin (salmon) 200 unit/actuation nasal spray 1 spray INTRANASAL (ALT) DAILY #3.7 ml 10/20/19 [Last Taken 01/31/20] acetaminophen 325 mg tablet 650 mg PO Q6H PRN #60 tab 12/16/19 [Last Taken Unknown] DULoxetine HCL [Cymbalta] 30 mg PO DAILY #30 capsule.sa 01/30/20 [Last Taken 01/31/20] Levothyroxine Sodium [Synthroid] 150 mcg PO DAILY #30 01/30/20 [Last Taken 01/31/20] Meloxicam [Mobic] 15 mg PO DAILY #30 tab 01/30/20 [Last Taken 01/31/20] Polyethylene Glycol 3350 [Miralax] 17 gm PO DAILY #1 bottle 01/30/20 [Last Taken Unknown] Sennosides/Docusate Sodium [Dok Plus Tablet] 1 ea PO BID PRN #60 tab 01/30/20 [Last Taken Unknown] oxyCODONE HCL/ACETAMINOPHEN [Percocet 5 MG/325 MG] 1 tab PO Q3H PRN #60 tab 01/30/20 [Last Taken 01/31/20 0009] - Pain Score Pain Score #1 Pain Score: 4 - History of Present History Narrative: The patient is a 84 year old male who presents for epigastric pain and weakness which has been present for several days but unable to manage care at home. There are associated symptoms of intermittent nausea. The patient reports epigastric pain, 4/10. There are no alleviating factors. There are no aggravating factors. Previous treatments have included: none. The past medical history includes: GERD, anxiety, depression, HTN, HLD, hypothyroid and osteoarthritis. The social history is negative. The patient has had no known ill contacts. Patient presents with increased weakness and persistent epigastric pain. Patient denies nausea, vomiting or diarrhea. Patient was scheduled for outpatient MRCP but refused to go as he is not wanting to proceed with additional treatment. Patient has recent US due and [place] hepatobiliary studies due to elevation of bilirubin and liver enzymes. Patient US positive for chronic cholecystitis with normal hepatobiliary scan. Patient was discussed with GI specialty at [facility] and plan was set for outpatient MRCP and outpatient clinic follow up. Patient states he did not attend appt as he does not want the additional testing and will not proceed with surgical intervention if necessary for treatment. Patient was discharged home from care center yesterday and today family felt he was unwell, having uncontrolled epigastric pain and felt unable to care for him as he was making poor medical decisions. After extensive discussion with patient he is adamant that he does not wish to receive further treatment for condition even if he would have a poor prognosis without treatment. Patient agrees to repeat labs but does not wish to receiving further imaging studies. Review of Systems - Review of Systems Constitutional: Present: fatigue. Absent: fever, chills EYE: Present: no symptoms reported ENT: Present: no symptoms reported. Absent: ear pain, nasal drainage, sore throat Respiratory: Present: no symptoms reported. Absent: shortness of breath, cough Cardiology: Present: no symptoms reported. Absent: chest pain Gastrointestinal/Abdominal: Present: nausea, abdominal pain. Absent: vomiting, diarrhea Genitourinary: Present: no symptoms reported. Absent: dysuria, decreased urinary output Musculoskeletal: Present: no symptoms reported. Absent: back pain Skin: Present: no symptoms reported Neurological: Present: weakness All Other Systems: All systems neg except as marked Medical History (Last Reviewed 03/11/20 @ 20:58 by DANETTE Murphy) Osteoarthritis (Chronic) Onset Date: Unknown Hypothyroidism (Chronic) Onset Date: Unknown Hyperlipidemia (Chronic) Onset Date: Unknown GERD (gastroesophageal reflux disease) (Chronic) Onset Date: Unknown Hypertension (Chronic) Onset Date: ~03/11/16 Depression (Chronic) Onset Date: Unknown Arthritis (Chronic) Onset Date: ~03/11/16 Anxiety disorder (Chronic) Onset Date: Unknown Acid reflux disease (Chronic) Onset Date: ~11/07/15 Calculus of kidney Onset Date: Unknown Colonoscopy refused Onset Date: ~12/11/16 Fracture Onset Date: Unknown Knee pain, left Onset Date: ~03/11/16 Knee pain, right Onset Date: ~03/11/16 Surgical History: Surgical History (Last Reviewed 03/11/20 @ 20:58 by DANETTE Murphy) S/P ORIF (open reduction internal fixation) fracture Onset Date: ~08/24/08 right patella Family History: Family History (Last Reviewed 03/11/20 @ 20:58 by DANETTE Murphy) Sister Diabetes Heart disease Father TIA (transient ischemic attack) Heart disease Aunt Cancer Uncle Cancer Social History: (Last Reviewed 03/11/20 @ 20:58 by DANETTE Murphy) Social History: Marital status: Single lives independently: Yes current occupational status: retired Service: No Tobacco: Smoking Status: Never smoker Alcohol: alcohol intake: never Substance Use: substance use type: does not use Dietary Habits: caffeine: Yes Physical Exam - Physical Exam General Appearance: Present: wd/wn, alert, mild distress Head Exam: Present: normal inspection, no evidence of injury Eye Exam: PERRL: bilateral, Scleral icterus: bilateral Neck: Present: normal inspection Respiratory: Present: no respiratory distress, normal breath sounds, no accessory muscle use, lungs clear Cardiovascular/Chest: Present: regular rate, rhythm, no murmur Gastrointestinal/Abdominal: Present: normal bowel sounds, nondistended, soft, tenderness - RUQ and epigastric Extremity Exam: Present: extremity edema - 3+ pitting edema bilateral lower extremities Neurological Exam: Present: alert, oriented, normal mood/affect, no motor/sensory deficits Skin Exam: Present: warm/dry, jaundice Progress - Date and Time Seen: Date and Time: 03/11/20 19:00 Results of testing discussed with patient and he continues to refuse additional imaging or specialty evaluation for plan of care. It was discussed with patient for observation admission and then he can discuss further plan of care with case management for possible hospice referral. 03/11/20 19:51 Case discussed with and will admit for observation with plan for case management to evaluate patient tomorrow for home plan with hospice vs home health care. Patients family that was caring for him since discharge yesterday from [place] was unable to aid him and felt that patient was not making proper choices for his care. Discussed with patient advanced imaging for evaluation such as CT vs MRCP which was previously discussed and patient refusing. Patient states that he will not proceed with surgical intervention and just wants palliative care. It was again discussed with patient that it may just be associated with cholecystitis which removal of his gallbladder may aid with improvement and again declines any surgical intervention or additional imaging. Patient did agree to receive dose of antibiotics as recommended by , will administer Rocephin. - Results and Orders Patient's Lab Results:: I have reviewed the patient's lab results. - Vital Signs Patient's Vital Signs:: I have reviewed the patient's vital signs. Vital Signs: Vital Signs 03/11/20 18:05 03/11/20 18:48 Temperature 36.5 C Pulse Rate 78 71 Respiratory Rate 15 9 L Blood Pressure 200/102 H 190/91 H O2 Sat by Pulse Oximetry 97 96 - Progress/Reassessment Chief Complaint: General Assessment Departure Clinical Impression: Jaundice, Hyperbilirubinemia, Elevated liver enzymes Abdominal pain Qualifiers: Abdominal location: upper abdomen, unspecified Qualified Code(s): R10.10 - Upper abdominal pain, unspecified - Departure Disposition: Still a patient Condition: Stable
[2020-03-11] MEDS ORDERED: LIDOCAINE HCL 15 ML UDC MM ONE (20:48)
[2020-03-11] MEDS ORDERED: MAG HYDROX/ALUMINUM HYD/SIMETH 30 ML UDC PO ONE (20:48)
[2020-03-11] MEDS ORDERED: SUCRALFATE 1 G/10 ML UDC PO ONE (20:48)
[2020-03-11] MEDS: CALCIUM CARBONATE 500 MG TAB.CHEW PO PRN (23:31)
[2020-03-12] MEDS: CALCIUM CARBONATE 500 MG TAB.CHEW PO PRN (04:58)
[2020-03-12 07:33] LABS: Hematocrit 30.7 % (42.0-52.0); Hemoglobin 10.7 gm/dL (13.5-18.0); Mean Cell Volume 95.6 fl (78-100); Mean Corpuscular Hemoglobin 33.3 pg (27-31); Mean Corpuscular Hgb Conc 34.9 g/dl (32-36); Mean Platelet Volume 10.1 fl (8-11.3); Neutrophil # 4.1 K/mm3 (1.3-6.0); Neutrophil % 64.5 % (42-75.0); Platelet Count 212 K/mm3 (150-450); Red Blood Count 3.21 M/mm3 (4.7-6.0); Red Cell Distribution Width 16.1 % (11.5-14.0); White Blood Count 6.4 K/mm3 (4.0-10.5)
[2020-03-12 07:47] LABS: Anion Gap 9.2 mmol/L (6.8-13.8); BUN/Creatinine Ratio 15.8 (9.0-21.6); Bilirubin Direct 5.3 mg/dL (0.0-0.3); Bilirubin, Total 6.8 mg/dL (0.0-1.1); Bilirubin,Indirect 1.5 mg/dL (0.1-0.7); Calcium * 9.2 mg/dL (7.9-10.9); Carbon Dioxide 30.3 mmol/L (24-32.6); Estimated Creat Clear 54.2; Potassium 3.5 mmol/L (3.4-4.6); Total Protein 6.3 gm/dL (6.2-8.2)
[2020-03-12] MEDS: FAMOTIDINE 20 MG TABLET PO SCH (20:16)
[2020-03-13] MEDS ORDERED: KETOROLAC TROMETHAMINE 10 MG TABLET PO ONE (02:34)
[2020-03-13 10:39] LABS: Albumin * 2.8 gm/dl (3.4-5.0); Anion Gap 11.4 mmol/L (6.8-13.8); BUN/Creatinine Ratio 10.1 (9.0-21.6); Bilirubin Direct 4.5 mg/dL (0.0-0.3); Bilirubin, Total 5.5 mg/dL (0.0-1.1); Ca. Corrected For Albumin 9.6 mg/dL (8.4-10.2); Carbon Dioxide 28.7 mmol/L (24-32.6); Potassium 3.1 mmol/L (3.4-4.6); Total Protein 6.1 gm/dL (6.2-8.2)
[2020-03-13 10:46] LABS: Hematocrit 31.8 % (42.0-52.0); Hemoglobin 10.7 gm/dL (13.5-18.0); Mean Cell Volume 97.8 fl (78-100); Mean Corpuscular Hemoglobin 32.9 pg (27-31); Mean Corpuscular Hgb Conc 33.6 g/dl (32-36); Mean Platelet Volume 10.5 fl (8-11.3); Neutrophil # 3.8 K/mm3 (1.3-6.0); Neutrophil % 65.7 % (42-75.0); Platelet Count 228 K/mm3 (150-450); Red Blood Count 3.25 M/mm3 (4.7-6.0); Red Cell Distribution Width 16.4 % (11.5-14.0); White Blood Count 5.8 K/mm3 (4.0-10.5)
[2020-03-13] MEDS ORDERED: SENNOSIDES/DOCUSATE SODIUM 1 TAB TABLET PO PRN (11:04)
--- NOTE | 2020-03-13 11:04 | HP ---
Chief Complaint - Chief Complaint Date of Service: 03/12/20 Time of Service: 08:30 Chief Complaint: Abdominal pain History of Present Illness: Sharath is an 84 male that has been previously seen in the hospital for complaints of abdominal pain with US of gall bladder showing possible tiny stones and sludge. Common bile duct measured 4mm and appeared non-obstructive. He had MRCP on 03/05 that showed no evidence of obstruction. He was sent to [facility] for SNF and had just been discharged home. At home he had return of his abdominal pain and returned to the ER for evaluation. It appears that he was scheduled an appointment at the [facility] for further evaluation but he reportedly did not go to this appointment as he had decided he did not want any further procedures or surgery. In the ER he had RUQ abdominal pain and enzymes elevated indicating a biliary obstruction with elevated bilirubin, AST, ALT, and alk phos. He had no fever or leukocytosis. The ER discussed transfer to [facility] as he may need ERCP but he declined any more procedures or surgery. It was discussed that he would be admitted to consult hospice and set up home hospice due to his decline to treat a life threatening condition. Medical History (Last Reviewed 03/11/20 @ 23:50 by Renee Topete RN) Osteoarthritis (Chronic) Onset Date: Unknown Hypothyroidism (Chronic) Onset Date: Unknown Hyperlipidemia (Chronic) Onset Date: Unknown GERD (gastroesophageal reflux disease) (Chronic) Onset Date: Unknown Hypertension (Chronic) Onset Date: ~03/11/16 Depression (Chronic) Onset Date: Unknown Arthritis (Chronic) Onset Date: ~03/11/16 Anxiety disorder (Chronic) Onset Date: Unknown Acid reflux disease (Chronic) Onset Date: ~11/07/15 Calculus of kidney Onset Date: Unknown Colonoscopy refused Onset Date: ~12/11/16 Fracture Onset Date: Unknown Knee pain, left Onset Date: ~03/11/16 Knee pain, right Onset Date: ~03/11/16 Surgical History: Surgical History (Last Reviewed 03/11/20 @ 23:50 by Renee Topete RN) S/P ORIF (open reduction internal fixation) fracture Onset Date: ~08/24/08 right patella Family History: Family History (Last Reviewed 03/11/20 @ 23:50 by Renee Topete RN) Sister Diabetes Heart disease Father TIA (transient ischemic attack) Heart disease Aunt Cancer Uncle Cancer Social History: (Last Reviewed 03/11/20 @ 23:50 by Renee Topete RN) Social History: Marital status: Single lives independently: Yes current occupational status: retired Service: No Tobacco: Smoking Status: Never smoker Alcohol: alcohol intake: never Substance Use: substance use type: does not use Dietary Habits: caffeine: Yes Review Of Systems (GEN) - Review of Systems Generalized/Overall Review: Present: Weakness. Absent: Chills, Fever EENTM: Present: No Symptoms Reported Respiratory: Present: No Symptoms Reported Cardiac: Present: No Symptoms Reported Abdominal: Present: Abdominal Pain. Absent: Nausea, Vomiting Genitourinary: Present: No Symptoms Reported Musculoskeletal: Present: No Symptoms Reported Neurological: Present: No Symptoms Reported Skin: Present: Change in Color - jaundice Endocrine: Present: No Symptoms Reported Immunizations: IMMUNIZATION HX Immunizations Up to Date Yes History of Influenza Vaccine Yes Hx Pneumococcal Vaccination No Allergies/Adverse Reactions: Allergies Allergy/AdvReac Type Severity Reaction Status Date / Time codeine Allergy Unknown Unknown Verified 03/11/20 18:08 Home Medications: HOME MEDICATIONS Aspirin [Aspirin Enteric Coated] 81 mg PO DAILY #90 tablet. 10/10/19 [Last Taken 01/31/20] acetaminophen 325 mg tablet 650 mg PO Q6H PRN #60 tab 12/16/19 [Last Taken Unknown] DULoxetine HCL [Cymbalta] 30 mg PO DAILY #30 capsule.sa 01/30/20 [Last Taken 01/31/20] Levothyroxine Sodium [Synthroid] 150 mcg PO DAILY #30 01/30/20 [Last Taken 01/31/20] Meloxicam [Mobic] 15 mg PO DAILY #30 tab 01/30/20 [Last Taken 01/31/20] Polyethylene Glycol 3350 [Miralax] 17 gm PO DAILY #1 bottle 01/30/20 [Last Taken Unknown] Sennosides/Docusate Sodium [Dok Plus Tablet] 1 ea PO BID PRN #60 tab 01/30/20 [Last Taken Unknown] oxyCODONE HCL/ACETAMINOPHEN [Percocet 5 MG/325 MG] 1 tab PO Q3H PRN #60 tab 01/30/20 [Last Taken 01/31/20 0009] Ergocalciferol (Vitamin D2) [Vitamin D2] 50,000 unit PO Q7D 08/21/20 [Last Taken Unknown] Pantoprazole Sodium 40 mg PO DAILY 03/12/20 [Last Taken Unknown] Exam - Exam Vital Signs: Vital Signs - Last Taken Temp 36.5 C 03/13/20 02:00 Pulse 72 03/13/20 06:00 Resp 18 03/13/20 06:00 BP 153/87 H 03/13/20 06:00 Pulse Ox 96 03/13/20 06:00 Constitutional: Present: Alert, Oriented x3, Cooperative, No distress ENT Exam: Present: hearing grossly normal Eye Exam: bilateral eye: scleral icterus Respiratory: Present: lungs clear, normal breath sounds Cardiovascular/Chest: Present: regular rate, rhythm, no edema, no murmur Peripheral Pulses: radial (R): 2+, radial (L): 2+ Abdomen: Present: Normal bowel sounds, soft, nontender, nondistended, no hepatospenomegaly Skin Exam: Present: warm/dry, no cyanosis, jaundice Neurologic: Present: no motor/sensory deficits, alert Eye contact: Present: good eye contact, normal speech Diagnostic Studies: Laboratory Results WBC 6.4 K/mm3 (4.0-10.5) 03/12/20 07:27 RBC 3.21 M/mm3 (4.7-6.0) L 03/12/20 07:27 Hgb 10.7 gm/dL (13.5-18.0) L 03/12/20 07:27 Hct 30.7 % (42.0-52.0) L 03/12/20 07:27 MCV 95.6 fl (78-100) 03/12/20 07:27 MCH 33.3 pg (27-31) H 03/12/20 07:27 MCHC 34.9 g/dl (32-36) 03/12/20 07:27 RDW 16.1 % (11.5-14.0) H 03/12/20 07:27 Plt Count 212 K/mm3 (150-450) 03/12/20 07:27 MPV 10.1 fl (8-11.3) 03/12/20 07:27 Immature Gran % (Auto) 0.50 % (0.001-0.429) H 03/12/20 07:27 Immature Gran # (Auto) 0.03 K/mm3 (0.000-0.0310) 03/12/20 07:27 Neutrophils % 64.5 % (42-75.0) 03/12/20 07: Lymphocytes % 21.9 % (20-51) 03/12/20 07:27 Monocytes % 10.7 % (0.0-9) H 03/12/20 07:27 Eosinophils % 1.3 % (0.0-3.0) 03/12/20 07:27 Basophils % 1.1 % (0.0-1.0) H 03/12/20 07:27 Nucleated RBC % 0.0 k/mm3 (0-1) 03/12/20 07:27 Neutrophils # 4.1 K/mm3 (1.3-6.0) 03/12/20 07: Lymphocytes # 1.39 k/mm3 (1.5-3.5) L 03/12/20 07:27 Monocytes # 0.7 k/mm3 (0.0-1.0) 03/12/20 07: Eosinophils # 0.1 k/mm3 (0.0-0.7) 03/12/20 07: Absolute Basophils 0.1 k/mm3 (0.0-0.1) 03/12/20 07:27 PT 9.5 Seconds (9.1-10.7) 03/11/20 18:22 INR (Anticoag Therapy) 0.96 INR (0.92-1.08) 03/11/20 18:22 PTT (Vandana) 24.2 Seconds (24-32) 03/11/20 18:22 Sodium 131 mmol/L (132-142) L 03/12/20 07:27 Plasma Sodium 131 mmol/L (130-142) 03/12/20 07:27 Potassium 3.5 mmol/L (3.4-4.6) 03/12/20 07:27 Chloride 95 mmol/L (97-106) L 03/12/20 07:27 Carbon Dioxide 30.3 mmol/L (24-32.6) 03/12/20 07:27 Anion Gap 9.2 mmol/L (6.8-13.8) 03/12/20 07:27 BUN 16 mg/dL (6-23) 03/12/20 07:27 Creatinine 1.01 mg/dL (0.4-1.4) 03/12/20 07:27 Est GFR (Non-Af Amer) 74 mL/min (60-130) D 03/12/20 07:27 BUN/Creatinine Ratio 15.8 (9.0-21.6) 03/12/20 07:27 Random Glucose 96 mg/dL (70-110) 03/12/20 07:27 Calcium 9.2 mg/dL (7.9-10.9) 03/12/20 07:27 Calcium Adj for Albumin 9.9 mg/dL (8.4-10.2) 03/11/20 18:22 Total Bilirubin 6.8 mg/dL (0.0-1.1) H 03/12/20 07:27 Direct Bilirubin 5.3 mg/dL (0.0-0.3) H 03/12/20 07:27 Indirect Bilirubin 1.5 mg/dL (0.1-0.7) H 03/12/20 07:27 AST 187 U/L (0-48) H 03/12/20 07:27 ALT 315 U/L (19-67) H 03/12/20 07:27 Alkaline Phosphatase 504 U/L (50-170) H 03/12/20 07:27 Total Protein 6.3 gm/dL (6.2-8.2) 03/12/20 07:27 Albumin 3.0 gm/dl (3.4-5.0) L 03/12/20 07:27 Amylase 50 U/L (25-115) 03/12/20 07:27 Lipase 118 U/L (73-393) 03/12/20 07:27 Assessment/Plan - Narrative Narrative: Sharath is an 84 yo male with evidence of biliary obstruction. This may have been from a small stone or sludge. This morning he is asymptomatic. He remains jaundiced but his liver enzympes and bilirubin are trending down a little. He overall feels weak and unable to go home. He is agreeable to going to [facility]. I discussed that he may have additional small stones and his symptoms may return. He requested to speak with a surgeon and Dr. Chávez kindly came and answered his questions. No care was given so a consult was not made. I discussed his case with Dr. Travis at [facility] who suspects his symptoms from a passed stone or sludge. Will plan to repeat labs and if trending down he may be discharged. He is unsure if he is strong enough for home and we will look into discharge to [facility] on sunday if he is unable to go home. - Assessment/Plan (1) Biliary obstruction Problem: Acute (2) Generalized weakness Problem: Acute
[2020-03-13] MEDS ORDERED: POTASSIUM CHLORIDE 20 MEQ TABLET.SA PO ONE (11:10)
[2020-03-13] MEDS: POLYETHYLENE GLYCOL 3350 17 GM PACKET PO SCH (11:48)
[2020-03-13] MEDS: DULoxetine HCL 30 MG CAPSULE.SA PO SCH (11:49)
[2020-03-13] MEDS: ASPIRIN 81 MG TABLET.DR PO SCH (11:49)
[2020-03-13] MEDS: PANTOPRAZOLE SODIUM 40 MG TABLET.EC PO SCH (11:49)
[2020-03-13] MEDS: LEVOTHYROXINE SODIUM 150 MCG TABLET PO SCH (11:49)
[2020-03-13] MEDS: KETOROLAC TROMETHAMINE 10 MG TABLET PO PRN (11:50)
--- NOTE | 2020-03-13 12:01 | DS ---
Date of Discharge:: 03/13/20 Hospital Course: 84-year-old male with past medical history of GERD, anxiety disorder, depression, hyperlipidemia, hypertension, and hypothyroidism was readmitted to [facility] for recurrent abdominal pain and jaundice. Patient was recently hospitalized for the symptoms and was found to have biliary sludge and possible stones but the common bile duct was found to be nonobstructed. He was then discharged to a [facility] where he received physical therapy and was subsequently discharged home. However, shortly after arriving home the patient's abdominal pain returned and he did not feel well so his neighbor who helps care for him was concerned enough to take him back to the hospital. Once in the ER he underwent labs which revealed a significantly elevated liver enzymes and elevated bilirubin and alkaline phosphatase, it was suspected that the patient had biliary obstruction. An appointment at the [facility] was set up for the patient so that he can undergo a MRCP but he chose not to go because he was under the impression that that would lead to surgery and he does not care to have any surgical procedures. So the patient was kept overnight for observation and repeat labs were ordered which have revealed a downward trend of his liver enzymes and bilirubin. At the moment he denies any abdominal pain or any other new symptoms. He reports his last bowel movement was last night and said it was formed stool with a small amount of blood in it. The the patient reports bloody stools are not new for him but could not explain what causes it. He has not had another episode since then. His hemoglobin has decreased since arriving to the hospital but appears to be stable. Whether or not the rectal bleeding is related to his biliary issues cannot be determined at this time so this will need follow-up. The patient expresses a desire to return to his home with home health and nursing care if possible and given the fact that the patient is homebound due to his chronic conditions the need for prison is necessary for management of his medications and monitoring of the patient's condition. The patient also has a need for physical therapy to address deconditioning and generalized weakness and also issues with balance. Given his deconditioning and weakness he will also need a bath aide to assist with his bathing and activities of daily living. The need for home health care skilled services is directly related to the time spent [id number] with the patient. Procedures Performed: none Results and Findings: Lab Pending Results 03/11/20 18:22: WBC 6.6, RBC 3.37 L, Hgb 11.2 L, Hct 32.5 L, MCV 96.4, MCH 33.2 H, MCHC 34.5, RDW 16.2 H, Plt Count 214, MPV 10.5, Immature Gran % (Auto) 0.30, Immature Gran # (Auto) 0.02, Neutrophils % 67.4, Lymphocytes % 18.4 L, Monocytes % 11.9 H, Eosinophils % 1.1, Basophils % 0.9, Nucleated RBC % 0.0, Neutrophils # 4.4, Lymphocytes # 1.21 L, Monocytes # 0.8, Eosinophils # 0.1, Absolute Basophils 0.1 03/11/20 18:22: PT 9.5, INR (Anticoag Therapy) 0.96, PTT (Vandana) 24.2 03/11/20 18:22: Sodium 131 L, Plasma Sodium 131, Potassium 3.8, Chloride 95 L, Carbon Dioxide 28.2, Anion Gap 11.6, BUN 20, Creatinine 1.29, Est GFR (Non-Af Amer) 56 L, BUN/Creatinine Ratio 15.5, Random Glucose 111 H, Calcium 9.7, Calcium Adj for Albumin 9.9, Total Bilirubin 7.1 H, AST 248 H, ALT 380 H, Alkaline Phosphatase 572 H, Total Protein 6.9, Albumin 3.4, Lipase 147 03/12/20 07:27: WBC 6.4, RBC 3.21 L, Hgb 10.7 L, Hct 30.7 L, MCV 95.6, MCH 33.3 H, MCHC 34.9, RDW 16.1 H, Plt Count 212, MPV 10.1, Immature Gran % (Auto) 0.50 H, Immature Gran # (Auto) 0.03, Neutrophils % 64.5, Lymphocytes % 21.9, Monocytes % 10.7 H, Eosinophils % 1.3, Basophils % 1.1 H, Nucleated RBC % 0.0, Neutrophils # 4.1, Lymphocytes # 1.39 L, Monocytes # 0.7, Eosinophils # 0.1, Absolute Basophils 0.1 03/12/20 07:27: Sodium 131 L, Plasma Sodium 131, Potassium 3.5, Chloride 95 L, Carbon Dioxide 30.3, Anion Gap 9.2, BUN 16, Creatinine 1.01, Est GFR (Non-Af Amer) 74 D, BUN/Creatinine Ratio 15.8, Random Glucose 96, Calcium 9.2, Total Bilirubin 6.8 H, Direct Bilirubin 5.3 H, Indirect Bilirubin 1.5 H, AST 187 H, ALT 315 H, Alkaline Phosphatase 504 H, Total Protein 6.3, Albumin 3.0 L, Amylase 50, Lipase 118 03/13/20 10:23: WBC 5.8, RBC 3.25 L, Hgb 10.7 L, Hct 31.8 L, MCV 97.8, MCH 32.9 H, MCHC 33.6, RDW 16.4 H, Plt Count 228, MPV 10.5, Immature Gran % (Auto) 0.30, Immature Gran # (Auto) 0.02, Neutrophils % 65.7, Lymphocytes % 18.8 L, Monocytes % 12.8 H, Eosinophils % 1.0, Basophils % 1.4 H, Nucleated RBC % 0.0, Neutrophils # 3.8, Lymphocytes # 1.10 L, Monocytes # 0.8, Eosinophils # 0.1, Absolute Basophils 0.1 03/13/20 10:23: Sodium 133, Plasma Sodium 133, Potassium 3.1 L, Chloride 96 L, Carbon Dioxide 28.7, Anion Gap 11.4, BUN 13, Creatinine 1.29, Est GFR (Non-Af Amer) 56 L D, BUN/Creatinine Ratio 10.1, Random Glucose 131 H D, Calcium 9.0, Calcium Adj for Albumin 9.6, Total Bilirubin 5.5 H, Direct Bilirubin 4.5 H, AST 183 H, ALT 282 H, Alkaline Phosphatase 466 H, Total Protein 6.1 L, Albumin 2.8 L Discharge Location: Home Disposition: Home Health Service [facility] Agency: [facility] Home Health Condition: Stable Face to Face Encounter completed per CMS Guidelines: Yes Discharge Activity: Activity as tolerated Discharge Diet: Full Liquids Longterm Therapy: Physical Therapy Complete Home Medications List: Complete Home Medication List: Aspirin [Aspirin Enteric Coated] 81 mg PO DAILY #90 tablet. 10/10/19 DULoxetine HCL [Cymbalta] 30 mg PO DAILY #30 capsule. 01/30/20 Levothyroxine Sodium [Synthroid] 150 mcg PO DAILY #30 01/30/20 Meloxicam [Mobic] 15 mg PO DAILY #30 tab 01/30/20 Polyethylene Glycol 3350 [Miralax] 17 gm PO DAILY #1 bottle 01/30/20 Sennosides/Docusate Sodium [Dok Plus Tablet] 1 ea PO BID PRN #60 tab 01/30/20 oxyCODONE HCL/ACETAMINOPHEN [Percocet 5 MG/325 MG] 1 tab PO Q3H PRN #60 tab 01/30/20 Ergocalciferol (Vitamin D2) [Vitamin D2] 50,000 unit PO Q7D 03/12/20 Pantoprazole Sodium 40 mg PO DAILY 03/12/20 Forms: Patient Portal Registration
[2020-03-13] MEDS: FAMOTIDINE 20 MG TABLET PO SCH (20:25)
[2020-03-13] MEDS: CALCIUM CARBONATE 500 MG TAB.CHEW PO PRN (22:52)
[2020-03-14] MEDS: KETOROLAC TROMETHAMINE 10 MG TABLET PO PRN (01:04)
[2020-03-14] MEDS: POLYETHYLENE GLYCOL 3350 17 GM PACKET PO SCH (09:06)
[2020-03-14] MEDS: LEVOTHYROXINE SODIUM 150 MCG TABLET PO SCH (09:07)
[2020-03-14] MEDS: ASPIRIN 81 MG TABLET.DR PO SCH (09:07)
[2020-03-14] MEDS: PANTOPRAZOLE SODIUM 40 MG TABLET.EC PO SCH (09:07)
[2020-03-14] MEDS: DULoxetine HCL 30 MG CAPSULE.SA PO SCH (09:07)
--- NOTE | 2020-03-14 13:41 | DS ---
Date of Discharge:: 03/14/20 Hospital Course: 84-year-old male with past medical history of GERD, anxiety disorder, depression, hyperlipidemia, hypertension, and hypothyroidism was readmitted to [facility] for recurrent abdominal pain and jaundice. Patient was recently hospitalized for the symptoms and was found to have biliary sludge and possible stones but the common bile duct was found to be nonobstructed. He was then discharged to a half-way where he received physical therapy and was subsequently discharged home. However, shortly after arriving home the patient's abdominal pain returned and he did not feel well so his neighbor who helps care for him was concerned enough to take him back to the hospital. Once in the ER he underwent labs which revealed a significantly elevated liver enzymes and elevated bilirubin and alkaline phosphatase, it was suspected that the patient had biliary obstruction. An appointment at the [facility] was set up for the patient so that he can undergo a MRCP but he chose not to go because he was under the impression that that would lead to surgery and he does not care to have any surgical procedures. So the patient was kept overnight for observation and repeat labs were ordered which have revealed a downward trend of his liver enzymes and bilirubin. At the moment he denies any abdominal pain or any other new symptoms. He reports his last bowel movement was last night and said it was formed stool with a small amount of blood in it. The the patient reports bloody stools are not new for him but could not explain what causes it. He has not had another episode since then. His hemoglobin has decreased since arriving to the hospital but appears to be stable. Whether or not the rectal bleeding is related to his biliary issues cannot be determined at this time so this will need follow-up. The patient expresses a desire to return to his home with home health and nursing care if possible and given the fact that the patient is homebound due to his chronic conditions the need for fpc is necessary for management of his medications and monitoring of the patient's condition. The patient also has a need for physical therapy to address deconditioning and generalized weakness and also issues with balance. Given his deconditioning and weakness he will also need a bath aide to assist with his bathing and activities of daily living. The need for home health care skilled services is directly related to the time spent [id number] with the patient. Procedures Performed: none Results and Findings: Lab Pending Results 03/11/20 18:22: WBC 6.6, RBC 3.37 L, Hgb 11.2 L, Hct 32.5 L, MCV 96.4, MCH 33.2 H, MCHC 34.5, RDW 16.2 H, Plt Count 214, MPV 10.5, Immature Gran % (Auto) 0.30, Immature Gran # (Auto) 0.02, Neutrophils % 67.4, Lymphocytes % 18.4 L, Monocytes % 11.9 H, Eosinophils % 1.1, Basophils % 0.9, Nucleated RBC % 0.0, Neutrophils # 4.4, Lymphocytes # 1.21 L, Monocytes # 0.8, Eosinophils # 0.1, Absolute Basophils 0.1 03/11/20 18:22: PT 9.5, INR (Anticoag Therapy) 0.96, PTT (Vandana) 24.2 03/11/20 18:22: Sodium 131 L, Plasma Sodium 131, Potassium 3.8, Chloride 95 L, Carbon Dioxide 28.2, Anion Gap 11.6, BUN 20, Creatinine 1.29, Est GFR (Non-Af Amer) 56 L, BUN/Creatinine Ratio 15.5, Random Glucose 111 H, Calcium 9.7, Calcium Adj for Albumin 9.9, Total Bilirubin 7.1 H, AST 248 H, ALT 380 H, Alkaline Phosphatase 572 H, Total Protein 6.9, Albumin 3.4, Lipase 147 03/12/20 07:27: WBC 6.4, RBC 3.21 L, Hgb 10.7 L, Hct 30.7 L, MCV 95.6, MCH 33.3 H, MCHC 34.9, RDW 16.1 H, Plt Count 212, MPV 10.1, Immature Gran % (Auto) 0.50 H, Immature Gran # (Auto) 0.03, Neutrophils % 64.5, Lymphocytes % 21.9, Monocytes % 10.7 H, Eosinophils % 1.3, Basophils % 1.1 H, Nucleated RBC % 0.0, Neutrophils # 4.1, Lymphocytes # 1.39 L, Monocytes # 0.7, Eosinophils # 0.1, Absolute Basophils 0.1 03/12/20 07:27: Sodium 131 L, Plasma Sodium 131, Potassium 3.5, Chloride 95 L, Carbon Dioxide 30.3, Anion Gap 9.2, BUN 16, Creatinine 1.01, Est GFR (Non-Af Amer) 74 D, BUN/Creatinine Ratio 15.8, Random Glucose 96, Calcium 9.2, Total Bilirubin 6.8 H, Direct Bilirubin 5.3 H, Indirect Bilirubin 1.5 H, AST 187 H, ALT 315 H, Alkaline Phosphatase 504 H, Total Protein 6.3, Albumin 3.0 L, Amylase 50, Lipase 118 03/13/20 10:23: WBC 5.8, RBC 3.25 L, Hgb 10.7 L, Hct 31.8 L, MCV 97.8, MCH 32.9 H, MCHC 33.6, RDW 16.4 H, Plt Count 228, MPV 10.5, Immature Gran % (Auto) 0.30, Immature Gran # (Auto) 0.02, Neutrophils % 65.7, Lymphocytes % 18.8 L, Monocytes % 12.8 H, Eosinophils % 1.0, Basophils % 1.4 H, Nucleated RBC % 0.0, Neutrophils # 3.8, Lymphocytes # 1.10 L, Monocytes # 0.8, Eosinophils # 0.1, Absolute Basophils 0.1 03/13/20 10:23: Sodium 133, Plasma Sodium 133, Potassium 3.1 L, Chloride 96 L, Carbon Dioxide 28.7, Anion Gap 11.4, BUN 13, Creatinine 1.29, Est GFR (Non-Af Amer) 56 L D, BUN/Creatinine Ratio 10.1, Random Glucose 131 H D, Calcium 9.0, Calcium Adj for Albumin 9.6, Total Bilirubin 5.5 H, Direct Bilirubin 4.5 H, AST 183 H, ALT 282 H, Alkaline Phosphatase 466 H, Total Protein 6.1 L, Albumin 2.8 L Discharge Location: Home Disposition: Home Health Service Condition: Stable Face to Face Encounter completed per CMS Guidelines: No Discharge Activity: Activity as tolerated Discharge Diet: General/regular food Problem Oriented Discharge Instructions to Patient/Family: Jaundice, Adult Additional Patient Instructions (free text): [facility] will call you with follow up appointment on Sunday with your PCP . Complete Home Medications List: Complete Home Medication List: Aspirin [Aspirin Enteric Coated] 81 mg PO DAILY #90 tablet. 10/10/19 DULoxetine HCL [Cymbalta] 30 mg PO DAILY #30 capsule. 01/30/20 Levothyroxine Sodium [Synthroid] 150 mcg PO DAILY #30 07/10/20 Meloxicam [Mobic] 15 mg PO DAILY #30 tab 01/30/20 Polyethylene Glycol 3350 [Miralax] 17 gm PO DAILY #1 bottle 01/30/20 Sennosides/Docusate Sodium [Dok Plus Tablet] 1 ea PO BID PRN #60 tab 01/30/20 oxyCODONE HCL/ACETAMINOPHEN [Percocet 5 MG/325 MG] 1 tab PO Q3H PRN #60 tab 01/30/20 Ergocalciferol (Vitamin D2) [Vitamin D2] 50,000 unit PO Q7D 03/12/20 Pantoprazole Sodium 40 mg PO DAILY 03/12/20 Forms: Patient Portal Registration
[2020-03-14 14:00] VITALS: BP 179/88
== END 2020-03-14 14:01 | disposition home or self-care (01) ==
LOC: MS 18:04 → ER 18:04 → MS 20:55
PROVIDERS: ADMIT Family Medicine; ATTEND Allergy & Immunology
DX: K83.1 Obstruction of bile duct; R17 Unspecified jaundice; R74.8 Abnormal levels of other serum enzymes; E03.9 Hypothyroidism, unspecified; E80.6 Other disorders of bilirubin metabolism; K81.9 Cholecystitis, unspecified; E78.5 Hyperlipidemia, unspecified; R53.1 Weakness; I10 Essential (primary) hypertension
CPT/HCPCS: 36415; 80048; 80053; 80076; 82150; 82248; 83690; 85025; 85610; 85730; 96365; 96366; 99285; G0378